=== PATIENT | female | born 2005 | race Two or more races ===

== ENCOUNTER 2024-08-22 23:56 | Emergency (ER) | payer MEDICAID, SELFPAY ==
[2024-08-23 00:22] VITALS: BP 125/75; PULSE 87; RESP 20; TEMP 36.9; O2SAT 98
--- NOTE | 2024-08-23 00:46 | XR_ITS ---
EXAMINATION: Ankle, left 2 views Technique: Ankle AP, lateral 2 views Date and time of exam: August 2024 0036 hrs. Indications: Patient fell today with injury to the ankle, ankle pain. Findings: Acute fracture distal fibular tip, 3.5 mm separation at the fracture site No ankle dislocation Impression: Acute fracture fibular near the fibular tip
[2024-08-23] MEDS: IBUPROFEN TAB 600 MG TABLET PO (00:47)
--- NOTE | 2024-08-23 01:23 | PD.EDANKLE ---
Lower Extremity Injury RME/HPI General Chief Complaint: Ankle/Foot Injury Stated Complaint: LEFT ANKLE PAIN Time Seen by Provider: 08/23/24 00:36 Arrival date/time: 08/22/24 23:56 18F with no significant PMH presents to ED with L ankle pain after trip and fall. Limitations: no limitations Related Data Previous Rx's ?Medication ?Instructions ?Recorded hydrocodone 5 mg-acetaminophen 300 1 tab PO QID PRN pain #14 tabs 07/14/18 mg tablet ibuprofen 600 mg tablet 600 mg PO QID PRN pain #30 tabs 07/14/18 psyllium husk 3.4 gram/5.4 gram 1 tbsp PO QDAY #283 grams 03/24/22 oral powder acetaminophen 300 mg-codeine 15 mg 1 tab PO Q6H PRN pain #10 tabs 04/17/23 tablet hydrocodone 5 mg-acetaminophen 325 1 tab PO BID PRN pain #7 tabs 08/23/24 mg tablet Allergies Allergy/AdvReac Type Severity Reaction Status Date / Time No Known Allergies Allergy Verified 07/14/18 13:09 Review of Systems Review of Systems Systems Reviewed: All systems reviewed, normal except as documented Constitutional Constitutional: Reports system reviewed and no additional complaints, except as documented, Denies fever(s) and Denies headache(s) ENT Ears, Nose, Mouth, and Throat: Denies disequilibrium and Denies headache(s) Cardiovascular Cardiovascular: Reports system reviewed and no additional complaints, except as documented, Denies chest pain and Denies dyspnea Respiratory Respiratory: Reports system reviewed and no additional complaints, except as documented, Denies cough and Denies dyspnea Gastrointestinal Gastrointestinal: Reports system reviewed and no additional complaints, except as documented, Denies abdominal pain, Denies nausea and Denies vomiting Musculoskeletal Musculoskeletal: Reports as per HPI and Reports arthralgias Neurologic Neurologic: Reports system reviewed and no additional complaints, except as documented, Denies confusion, Denies disequilibrium and Denies headache(s) Psychiatric Psychiatric: Denies confusion Past Medical History Past Medical History CARDIAC: Negative Cardiac Disorders or Congestive Heart Failure RESPIRATORY: Negative Chronic Obstructive Pulmonary Disease (COPD) or Asthma GENITOURINARY: Negative Renal Disease ENDOCRINE: Negative Diabetes Mellitus Type 1 or Diabetes Mellitus Type 2 HEMATOLOGIC: Negative Sickle Cell Disease Social History SMOKING STATUS: Never smoker ED Exam General Limitations: Present no limitations General appearance: Present alert and in no apparent distress Head Head exam: Present atraumatic Eye Eye exam: Present normal appearance, PERRL and EOMI ENT ENT exam: Present normal exam, normal oropharynx and mucous membranes moist Neck Neck exam: Present normal inspection, full ROM and trachea midline Chest Chest inspection: Present normal inspection and symmetric chest wall rise Respiratory Respiratory exam: Present normal lung sounds bilaterally Cardiovascular Cardiovascular exam: Present regular rate, normal rhythm and normal heart sounds Abdominal Exam Abdominal exam: Present soft and normal bowel sounds Expanded Lower Extremity Exam Ankle exam: Present tenderness (L) and swelling Back Exam Back exam: Present normal inspection and full ROM Neurological Exam Neurological exam: Present alert, oriented X3 and CN II-XII intact Psychiatric Psychiatric exam: Present normal affect and normal mood Skin Skin exam: Present warm, dry, intact and normal color Course Quality Measures none Orders Category Date Time Status Crutches .NOW Care 08/23/24 00:44 Active Splint / Immobilizer STAT Care 08/23/24 00:44 Active XR ankle comp LT min 3V Stat Exams 08/23/24 00:46 Taken Ibuprofen Tab [Motrin Tab] Med 08/23/24 00:36 Discontinued 600 mg PO X1 ONE Ondansetron Odt [Zofran Odt] Med 08/23/24 00:36 Discontinued 4 mg PO X1 ONE Vital Signs Vital signs: Vital Signs Temperature 98.5 F 08/23/24 00:22 Pulse Rate 87 08/23/24 00:22 Respiratory Rate 20 08/23/24 00:22 Blood Pressure 125/75 08/23/24 00:22 Pulse Oximetry (%) 98 08/23/24 00:22 Oxygen Delivery Method Room Air 08/23/24 00:22 O2 at 98% on RA and WNLs Extremity Injury, Lower MDM Narrative MDM Narrative:: 18F with no significant PMH presents to ED with L ankle pain after trip and fall. Physical exam reveals L ankle tenderness and swelling. ROM limited, likely due to pain. Toe ROM normal. Distal pulses present. Patient is afebrile, alert, but crying XR reveals L fibula fx. Given splint, crutches, and ortho referral. Patient data External records reviewed:: [facility] previous records Clinical information provided by:: patient Social determinants that could affect healthcare access:: none Patient has the following chronic illnesses:: none How is presenting disease/condition affected by chronic disease/condition?: no chronic disease Evaluation data The following diagnostics were reviewed and interpreted by me:: radiology exam(s) Lab and/or radiology exams considered but not ordered:: ordered Interpretation Summary: above Medications / Prescriptions Medications or Prescriptions considered but not ordered:: ordered Medication administrations:: Medication Administration History Discontinued Medications Ibuprofen (Ibuprofen Tab 600 Mg Tablet) 600 mg PO X1 ONE Stop: 08/23/24 00:37 Last Admin: 08/23/24 00:47 Dose: 600 mg Documented By: Ondansetron HCl (Ondansetron Odt 4 Mg Tabrap) 4 mg PO X1 ONE; Protocol Stop: 08/23/24 00:37 Last Admin: 08/23/24 00:48 Dose: Not Given Documented By: Non-Admin Reason: Cancelled by Provider above Consultations Consultation(s) initiated? (list below): No Diagnosis Extremity Injury, Lower Differential Diagnosis: ankle sprain and strain, acute internal derangement of knee, puncture wound of foot, fracture of toe and ankle fracture Most likely diagnosis given after review of the tests above:: ankle fx Admission Indicated Admission indicated?: not indicated Admission Request Was there a request for admission?: No Disposition Plan Disposition Plan: Discharge Discharge Attestation Discharge Attestation: The patient and all family members were given an opportunity to ask questions and understood the discharge instructions. Discharge instructions specifically effects, indications for sooner follow up or return to the emergency department, and the expected course of current diagnosis. Patient condition: Stable Discharge Plan Plan Patient Disposition: HOME (Self Care) Disposition Comment: Stable Prescriptions/Referrals Prescriptions/Med Rec: New hydrocodone-acetaminophen 5-325 mg tablet 1 tab PO BID MDD 2 PRN (Reason: pain) Qty: 7 0RF No Action hydrocodone-acetaminophen 5-300 mg tablet 1 tab PO QID MDD 15 mg PRN (Reason: pain) Qty: 14 0RF ibuprofen 600 mg tablet 600 mg PO QID PRN (Reason: pain) Qty: 30 0RF psyllium husk 3.4 gram/5.4 gram powder 1 tbsp PO QDAY Qty: 283 0RF Rx Instructions: mix into at least 8 oz of water or juice before administering acetaminophen-codeine 300-15 mg tablet 1 tab PO Q6H MDD 4 PRN (Reason: pain) Qty: 10 0RF Referrals: Pete Rivera MD [Physician] - 08/25/24 3:00 pm Problem List Clinical Impression: Ankle fracture Patient/Caregiver Discharge Instructions Education Materials: ED Fracture, Lower Extremity Additional Instructions: Please follow-up with PCP within 24-48 hours and return immediately if symptoms worsen. Please go to scheduled ortho appointment with Dr. Rivera on Sunday at 3 PM. Print Language: Arabic Stand Alone Forms: Patient Portal Info Letter PA/COMPUTER SCIENCE PROFESSOR Supervising Physician PA/COMPUTER SCIENCE PROFESSOR Supervising Physician: Dr. Brock
[2024-08-23 01:35] VITALS: RESP 18
== END 2024-08-23 01:35 | disposition home or self-care (01) ==
LOC: SERX 08-23 06:56
PROVIDERS: Emergency Provider Emergency Medicine; PCP Family Medicine
DX: S82.832A Other fracture of upper and lower end of left fibula, initial encounter for closed fracture (principal); W01.0XXA Fall on same level from slipping, tripping and stumbling without subsequent striking against object, initial encounter
CPT/HCPCS: 29515; 73610; 99283; A9270

== ENCOUNTER 2024-09-18 11:13 | Emergency (ER) | payer MEDICAID, SELFPAY ==
[2024-09-18 11:14] VITALS: BMI 26.4
[2024-09-18 11:23] VITALS: BP 121/79; PULSE 92; RESP 16; TEMP 37.2; O2SAT 99
--- NOTE | 2024-09-18 11:30 | XR_ITS ---
Examination: Pelvic ultrasound, transabdominal, complete Technique: Transabdominal ultrasound of the pelvis performed using grayscale imaging Date and time of exam: September 18, 2024 1221 hours INDICATIONS: Onset pelvic pain today uterus 7.5 cm endometrial stripe 1.0 cm No uterine mass or intrauterine gestation Ovaries obscured by bowel gas IMPRESSION: Limited study No uterine mass or intrauterine gestation
--- NOTE | 2024-09-18 11:30 | PD.EDABDPN ---
ED Abdominal Pain RME/HPI General Chief Complaint: Abdominal Pain Stated complaint: abdominal pain suprpubic since this morning no NV Time seen by provider: 09/18/24 11:17 Arrival date/time: 09/18/24 11:13 RME / HPI RME / HPI narrative: 18-year-old female patient with no significant past medical history, came in for evaluation regarding pelvic pain. Onset of symptoms since early this morning as sudden onset of pelvic pain, described as crampy, associated with tenderness possible patient symptom severity is moderate. Patient denies any dysuria but complain of constipation also. Denies any fever denies any vomiting denies any other complaints no medications taken prior to ER visit. Related Data Previous Rx's ?Medication ?Instructions ?Recorded hydrocodone 5 mg-acetaminophen 300 1 tab PO QID PRN pain #14 tabs 07/14/18 mg tablet ibuprofen 600 mg tablet 600 mg PO QID PRN pain #30 tabs 07/14/18 psyllium husk 3.4 gram/5.4 gram 1 tbsp PO QDAY #283 grams 03/24/22 oral powder acetaminophen 300 mg-codeine 15 mg 1 tab PO Q6H PRN pain #10 tabs 04/17/23 tablet hydrocodone 5 mg-acetaminophen 325 1 tab PO BID PRN pain #7 tabs 08/23/24 mg tablet cefuroxime axetil 500 mg tablet 500 mg PO BID #14 tabs 09/18/24 Allergies Allergy/AdvReac Type Severity Reaction Status Date / Time No Known Allergies Allergy Verified 07/14/18 13:09 Review of Systems Review of Systems Narrative Review of Systems: Review of system reviewed and within normal limits except mentioned in HPI ED Exam Narrative Physical exam: VITAL SIGNS: Reviewed. GENERAL APPEARANCE: Alert and interactive, follows commands, no acute distress, HEAD AND FACE: Non-traumatic. ENT: PERRL, pink conjunctivitis, eyelid no trauma, Mucous membrane moist. NECK: Supple, nontender, no nuchal rigidity. CHEST: No tenderness, no crepitus, no paradoxical movement, no retractions. LUNGS: Clear, well ventilated, symmetric, no rales, no wheezing, no ronchi, no stridor, good breath sounds bilaterally. HEART: Regular rate, regular rhythm, no murmur, no gallops. ABDOMEN: Soft, positive bowel sounds, nondistended, no guarding, nontender, no rebound, no masses, RECTAL: Deferred. GENITAL: Pelvic tenderness on palpation NEUROLOGICAL: Gross motor function intact sensory function intact, Appropriate for age. MUSCULOSKELETAL: low back nontender, full range of motion. EXTREMITIES: Nontender, full range of motion. SKIN: Color pink, dry, no rash, no lacerations, no abrasions, no contusions. LYMPHATICS: Deferred. Course Quality Measures none Orders Category Date Time Status US pelvic complete Stat Exams 09/18/24 11:30 Completed CBC Stat Lab 09/18/24 11:48 Completed Comprehensive Metabolic Panel Stat Lab 09/18/24 11:48 Completed HCG Qualitative,Urine Stat Lab 09/18/24 15:00 Completed Lipase Stat Lab 09/18/24 11:48 Completed Prothrombin Time with INR Stat Lab 09/18/24 11:48 Completed UA, C/S IF [Urinalysis, C/S if Indicated] Stat Lab 09/18/24 15:00 Completed Urine Culture Stat Lab 09/18/24 15:00 Received Acetaminophen Tab [Tylenol ES Tab] Med 09/18/24 11:29 Discontinued 1,000 mg PO X1 ONE Magnesium Citrate Liqd [Citrate of Magnesia Liqd] Med 09/18/24 11:29 Discontinued 300 ml PO X1 ONE Vital Signs Vital signs: Vital Signs Temperature 99.0 F 09/18/24 11:23 Pulse Rate 92 09/18/24 11:23 Respiratory Rate 16 09/18/24 11:23 Blood Pressure 121/79 09/18/24 11:23 Pulse Oximetry (%) 99 09/18/24 11:23 Oxygen Delivery Method Room Air 09/18/24 11:23 Abdominal Pain MDM MDM Narrative MDM Narrative:: 18-year-old female patient with no significant past medical history, came in for evaluation regarding pelvic pain. Onset of symptoms since early this morning as sudden onset of pelvic pain, described as crampy, associated with tenderness possible patient symptom severity is moderate. Patient denies any dysuria but complain of constipation also. Denies any fever denies any vomiting denies any other complaints no medications taken prior to ER visit. Laboratory workup significant for UTI. Rest of the labs unremarkable. Ultrasound of the pelvis came back unremarkable. Patient data External records reviewed:: None Clinical information provided by:: none Social determinants that could affect healthcare access:: none Patient has the following chronic illnesses:: None How is presenting disease/condition affected by chronic disease/condition?: no chronic disease Evaluation data The following diagnostics were reviewed and interpreted by me:: lab results and radiology exam(s) Lab and/or radiology exams considered but not ordered:: None Interpretation Summary: See results in [facility] Medications / Prescriptions Medications or Prescriptions considered but not ordered:: None Medication administrations:: Medication Administration History Discontinued Medications Acetaminophen (Acetaminophen 500 Mg Tablet) 1,000 mg PO X1 ONE Stop: 09/18/24 11:30 Last Admin: 09/18/24 11:50 Dose: 1,000 mg Documented By: DO Magnesium Citrate (Magnesium Citrate 300 Ml Btl) 300 ml PO X1 ONE Stop: 09/18/24 11:30 Last Admin: 09/18/24 11:51 Dose: 300 ml Documented By: DO Mag citrate, Tylenol Consultations Consultation(s) initiated? (list below): No Diagnosis Differential diagnosis abdominal pain: abdominal pain and pancreatitis (Constipation, UTI, pelvic pain) Most likely diagnosis given after review of the tests above:: Pelvic pain, UTI Admission Indicated Admission indicated?: not indicated Explain why admission is indicated or not indicated:: Stable Admission Request Was there a request for admission?: No Disposition Plan Disposition Plan: Discharge Discharge Attestation Discharge Attestation: The patient and all family members were given an opportunity to ask questions and understood the discharge instructions. Discharge instructions specifically effects, indications for sooner follow up or return to the emergency department, and the expected course of current diagnosis. Patient condition: Stable Discharge Plan Plan Patient Disposition: HOME (Self Care) Disposition Comment: stable Prescriptions/Referrals Prescriptions/Med Rec: New cefuroxime axetil 500 mg tablet 500 mg PO BID Qty: 14 0RF No Action hydrocodone-acetaminophen 5-300 mg tablet 1 tab PO QID MDD 15 mg PRN (Reason: pain) Qty: 14 0RF ibuprofen 600 mg tablet 600 mg PO QID PRN (Reason: pain) Qty: 30 0RF hydrocodone-acetaminophen 5-325 mg tablet 1 tab PO BID MDD 2 PRN (Reason: pain) Qty: 7 0RF psyllium husk 3.4 gram/5.4 gram powder 1 tbsp PO QDAY Qty: 283 0RF Rx Instructions: mix into at least 8 oz of water or juice before administering acetaminophen-codeine 300-15 mg tablet 1 tab PO Q6H MDD 4 PRN (Reason: pain) Qty: 10 0RF Referrals: Stevie Ware MD [Primary Care Provider] - In 1 week Problem List Clinical Impression: UTI (urinary tract infection), Pelvic pain Patient/Caregiver Discharge Instructions Discharge Activity: activity as tolerated Education Materials: Understanding Urinary Tract ... Additional Instructions: Thank you for the opportunity for serving you today. You are stable for discharged . You are advised to: Follow-up with your PCP in 1 to 2 days Return to ED for worsening of symptoms Increase oral fluids Take medication as prescribed Print Language: Macedonian Stand Alone Forms: Estella Award Info., Patient Portal Info Letter PA/SERVER CASHIER Supervising Physician PA/FRIEDA Supervising Physician: MD Maikel
[2024-09-18] MEDS: ACETAMINOPHEN 500 MG TABLET 1000 MG PO (11:50)
[2024-09-18] MEDS: MAGNESIUM CITRATE 300 ML BTL PO (11:51)
[2024-09-18 12:05] LABS: Basophils # (Auto) 0.1 Thou/mm3 (0.0-0.2); Basophils % (Auto) 1 % (0-2.5); Eosinophils # (Auto) 0.1 Thou/mm3 (0.0-0.5); Eosinophils % (Auto) 1 % (0-10); Hematocrit 41.3 % (36.0-46.0); Hemoglobin 13.8 g/dL (12.0-16.0); Immature Granulocytes % (Auto) 0 % (0-0); Immature Granulocytes Auto 0.02 Thou/mm3 (0.00-0.00); Lymphocytes # (Auto) 2.7 Thou/mm3 (1.0-4.8); Lymphocytes % (Auto) 29 % (10-50); Mean Corpuscular HGB Conc 33.4 g/dl (31.0-37.0); Mean Corpuscular Hemoglobin 27.4 pg (25.0-35.0); Mean Corpuscular Volume 82 fL (80-100); Monocytes # (Auto) 0.6 Thou/mm3 (0.0-0.8); Monocytes % (Auto) 6 % (0-12); Neutrophils # (Auto) 5.9 Thou/mm3 (1.8-7.7); Neutrophils % (Auto) 64 % (37-80); Nucleated Red Blood Cell % 0 /100 WBC (0); Platelet Count 311 Thou/mm3 (140-440); RDW Standard Deviation 35.9 fL (36.4-46.3); Red Blood Count 5.04 Miln/mm3 (4.00-5.20); White Blood Count 9.3 Thou/mm3 (4.5-11.0)
[2024-09-18 12:24] LABS: Alanine Aminotransferase 24 U/L (10-49); Albumin, Serum 4.6 gm/dL (3.5-5.0); Albumin/Globulin Ratio 1.6 (1.2-2.2); Alkaline Phosphatase 124 U/L (46-116); Anion Gap 9 (7-16); Aspartate Amino Transferase 16 U/L (0-34); BUN/Creatinine Ratio 13 Ratio (12-20); Bilirubin,Total 0.5 mg/dL (0.3-1.2); Blood Urea Nitrogen 10 mg/dL (9-23); Calcium 9.5 mg/dL (8.3-10.6); Calcium (Corrected) 9.5 mg/dL (8.5-10.1); Carbon Dioxide 26.5 mMol/L (20.0-31.0); Chloride 108 mMol/L (98-107); Creatinine (Component) 0.8 mg/dL (0.6-1.3); Estimated Creatinine Clearance 91.7 mL/min (>60); Globulin 2.8 gm/dL (2.3-3.5); Glucose 96 mg/dL (74-106); Lipase 46 U/L (12-53); Osmolality,Calculated 283 (275-295); Potassium 4.1 mMol/L (3.4-5.1); Sodium 143 mMol/L (136-145); Total Protein 7.4 gm/dL (5.7-8.2); eGFR > 60 See Note
[2024-09-18 12:26] LABS: Prothrombin Time 10.5 Seconds (9.0-12.2)
[2024-09-18 14:13] VITALS: TEMP 36.6
[2024-09-18 15:13] LABS: Collection Type, Urine Clean Catch
[2024-09-18 15:27] LABS: HCG Qualitative,Urine Negative
[2024-09-18 15:28] LABS: Bilirubin,Urine Negative (Negative); Blood,Urine 2+ (Negative); Clarity,Urine Clear (Clear/Hazy); Color,Urine Lt-Yellow (Lt Yel-Yel); Glucose, Urine Negative (Negative); Ketones,Urine Trace (Negative); Leukocyte Esterase,Urine Positive (Negative); Nitrite,Urine Negative (Negative); PH,Urine 6.5 (5.0-7.0); Protein,Urine Negative (Neg - Trace); RBC,Urine 5 /hpf (0-3); Specific Gravity,Urine 1.025 (1.001-1.035); Squamous Epithelial Cell,Urine 10 /hpf (0-5); Urobilinogen,Urine Negative mg/dL (0.0-1.0); WBC,Urine 17 /hpf (0-5)
[2024-09-18 15:52] LABS: Culture Indicated,Urine Yes
[2024-09-18 16:38] VITALS: BP 126/60; PULSE 88; RESP 18; TEMP 36.6; O2SAT 100
== END 2024-09-18 17:00 | disposition home or self-care (01) ==
PROVIDERS: Nurse Practitioner Family; Emergency Provider Emergency Medicine; PCP Family Medicine
DX: N39.0 Urinary tract infection, site not specified (principal)
CPT/HCPCS: 36415; 76856; 80053; 81001; 81025; 83690; 85025; 85610; 87086; 99284; A9270

== ENCOUNTER → 2024-09-24 | Outpatient (CLI) | payer MEDICAID, SELFPAY ==
--- NOTE | 2024-09-24 14:48 | XR_ITS ---
EXAMINATION: Ankle, left 3 views . Technique: Ankle AP, oblique, lateral 3 views Date and time of exam: September 24, 2024 1555 hrs. Indications: Ankle fracture 5 weeks ago Findings: Healing fracture distal fibular tip with stable and satisfactory alignment Impression: Healing fracture distal fibular tip, stable and satisfactory alignment
== END | disposition home or self-care (01) ==
LOC: SDIM 14:40
PROVIDERS: PCP Physician Assistant; Referring Provider Orthopaedic Surgery; Visit Provider Orthopaedic Surgery
DX: S82.832A Other fracture of upper and lower end of left fibula, initial encounter for closed fracture (principal); X58.XXXA Exposure to other specified factors, initial encounter
CPT/HCPCS: 73610

== ENCOUNTER 2024-12-11 14:03 | Emergency (ER) | payer MEDICAID, SELFPAY ==
[2024-12-11 14:03] VITALS: BMI 26.7
[2024-12-11 14:13] VITALS: BP 124/84; PULSE 98; RESP 18; TEMP 36.9; O2SAT 98
--- NOTE | 2024-12-11 14:14 | EDNOTE_ITS ---
<Statement entered by Katerin Guillaume MD - 12/12/24 06:23> As co-signing physician, I was present and available for consult prn. I concur with the plan and care as documented by the midlevel provider. ED Female Urogenital RME/HPI General Chief complaint: Urogenital-Female Stated complaint: SPOTTING AND + PREG Time Seen by Provider: 12/11/24 14:15 Source: patient Arrival date/time: 12/11/24 14:03 18-year-old female with no known medical history presents to the emergency room with a chief complaint of vaginal spotting. Patient states she is currently 3 weeks and began having spotting when she wipes. Patient is a G1, P0 Mode of arrival: ambulatory Limitations: no limitations Related Data Previous Rx's ?Medication ?Instructions ?Recorded hydrocodone 5 mg-acetaminophen 300 1 tab PO QID PRN pa in #14 tabs 07/14/18 mg tablet ibuprofen 600 mg tablet 600 mg PO QID PRN pain #30 t abs 07/14/18 psyllium husk 3.4 gram/5.4 gram 1 tbsp PO QDAY #283 gr ams 03/24/22 oral powder acetaminophen 300 mg-codeine 15 mg 1 tab PO Q6H PRN pa in #10 tabs 04/17/23 tablet hydrocodone 5 mg-acetaminophen 325 1 tab PO BID PRN pa in #7 tabs 08/23/24 mg tablet cefuroxime axetil 500 mg tablet 500 mg PO BID #14 tabs 09/18/24 Allergies Allergy/AdvReac Type Severity Reaction Status Date / Time No Known Allergies Allergy Verified 12/11/24 14:06 ED Exam General Limitations: Present no limitations Course Quality Measures none Orders Category Date Time Status US OB <= 14 weeks fetus Stat Exams 12/11/24 14:14 Completed ABO/RH Type Stat Lab 12/11/24 14:46 Completed Beta HCG,Quantitative Stat Lab 12/11/24 14:46 Completed CBC Stat Lab 12/11/24 14:46 Completed CMP [Comprehensive Metabolic Panel] Stat Lab 12/11/24 14:46 Completed UA [Urinalysis] Stat Lab 12/11/24 14:20 Completed Vital Signs Vital signs: Vital Signs Temperature 98.4 F 12/11/24 14:13 Pulse Rate 98 12/11/24 14:13 Respiratory Rate 18 12/11/24 14:13 Blood Pressure 124/84 12/11/24 14:13 Pulse Oximetry (%) 98 12/11/24 14:13 Oxygen Delivery Method Room Air 12/11/24 14:13 Urogenital - Female MDM Narrative MDM Narrative:: 18-year-old female with no known medical history presents to the emergency room with a chief complaint of vaginal spotting. Patient states she is currently 3 weeks and began having spotting when she wipes. Patient is a G1, P0 Patient is hemodynamically stable and in no apparent distress. There is no tachycardia or tachypnea fevers Physical examination shows no tenderness to the abdomen. Patient states her only complaint is vaginal spotting when she wipes. Patient states she is currently 3 weeks . An ultrasound OB was completed and was negative for any intrauterine gestation. Her hCG levels are at 2797. Patient was educated to return in 3 days for repeat ultrasound and blood work. Patient was educated to follow-up with her MAGNETIC RESONANCE IMAGING DIRECTOR and return to the emergency room for any evidence of worsening signs or symptoms. Hemoglobin and hematocrit are within normal limits Patient was discharged and educated to follow-up with primary care provider in the next 24 to 48 hours and return to the emergency room for any evidence of worsening signs or symptoms Patient data External records reviewed:: [facility] previous records Clinical information provided by:: patient Social determinants that could affect healthcare access:: none Patient has the following chronic illnesses:: No chronic illness How is presenting disease/condition affected by chronic disease/condition?: no chronic disease Evaluation data The following diagnostics were reviewed and interpreted by me:: lab results and radiology exam(s) Lab and/or radiology exams considered but not ordered:: Labs and radiology exams considered and ordered Interpretation Summary: Ultrasound OB-Findings: Uterus 8.2 cm endometrial stripe 1.0 cm No uterine mass or intrauterine gestation Right ovary 3.0 cm arterial flow Left ovary 2.9 cm arterial flow IMPRESSION: No uterine mass or intrauterine gestation Medications / Prescriptions Medications or Prescriptions considered but not ordered:: Medication not given Medication administrations:: Medication not given Consultations Consultation(s) initiated? (list below): No Diagnosis Urogenital Female Differential Diagnosis: urinary tract infection and other Most likely diagnosis given after review of the tests above:: Vaginal bleeding Admission Indicated Admission indicated?: not indicated Admission Request Was there a request for admission?: No Disposition Plan Disposition Plan: Discharge Discharge Attestation Discharge Attestation: The patient and all family members were given an opportunity to ask questions and understood the discharge instructions. Discharge instructions specifically effects, indications for sooner follow up or return to the emergency department, and the expected course of current diagnosis. Patient condition: Stable Discharge Plan Plan Patient Disposition: HOME (Self Care) Discharge Disposition comment: Stable Prescriptions/Referrals Prescriptions/Med Rec: No Action hydrocodone-acetaminophen 5-300 mg tablet 1 tab PO QID MDD 15 mg PRN (Reason: pain) Qty: 14 0RF ibuprofen 600 mg tablet 600 mg PO QID PRN (Reason: pain) Qty: 30 0RF hydrocodone-acetaminophen 5-325 mg tablet 1 tab PO BID MDD 2 PRN (Reason: pain) Qty: 7 0RF psyllium husk 3.4 gram/5.4 gram powder 1 tbsp PO QDAY Qty: 283 0RF Rx Instructions: mix into at least 8 oz of water or juice before administering acetaminophen-codeine 300-15 mg tablet 1 tab PO Q6H MDD 4 PRN (Reason: pain) Qty: 10 0RF cefuroxime axetil 500 mg tablet 500 mg PO BID Qty: 14 0RF Referrals: No Primary/Family,Physician [Primary Care Provider] - In 1 week Problem List Clinical Impression: Vaginal bleeding affecting early Patient/Caregiver Discharge Instructions Education Materials: Bleeding During Early Additional Instructions: Please follow-up with your MAGNETIC RESONANCE IMAGING DIRECTOR in the next 24 to 48 hours Your ultrasound was completed and at this time there is no visualization of an intrauterine . This can be because you are very early on in your . Your hCG levels are 2767 which indicate you are . Please follow-up with your MAGNETIC RESONANCE IMAGING DIRECTOR For any evidence of worsening signs or symptoms return to the emergency room immediately Print Language: Georgian Stand Alone Forms: Estella Award Info., Patient Portal Info Letter PA/JEWEL BEARING MAKER Supervising Physician PA/JEWEL BEARING MAKER Supervising Physician: Dr. GUILLAUME
--- NOTE | 2024-12-11 14:14 | XR_ITS ---
Examination: Complete OB ultrasound, less than 14 weeks, transabdominal Date and time of exam: December 11, 2024 1426 hours INDICATIONS: Vaginal bleeding onset today Technique: Obstetrical ultrasound images less than 14 weeks performed via transabdominal imaging Findings: Uterus 8.2 cm endometrial stripe 1.0 cm No uterine mass or intrauterine gestation Right ovary 3.0 cm arterial flow Left ovary 2.9 cm arterial flow IMPRESSION: No uterine mass or intrauterine gestation
[2024-12-11 14:49] LABS: Collection Type, Urine Clean Catch
[2024-12-11 15:13] LABS: Basophils % (Auto) 0 % (0-2.5); Eosinophils # (Auto) 0.1 Thou/mm3 (0.0-0.5); Eosinophils % (Auto) 1 % (0-10); Hematocrit 39.3 % (36.0-46.0); Hemoglobin 13.6 g/dL (12.0-16.0); Immature Granulocytes % (Auto) 0 % (0-0); Immature Granulocytes Auto 0.03 Thou/mm3 (0.00-0.00); Lymphocytes # (Auto) 3.8 Thou/mm3 (1.0-4.8); Lymphocytes % (Auto) 37 % (10-50); Mean Corpuscular HGB Conc 34.6 g/dl (31.0-37.0); Mean Corpuscular Hemoglobin 27.6 pg (25.0-35.0); Mean Corpuscular Volume 80 fL (80-100); Monocytes # (Auto) 0.8 Thou/mm3 (0.0-0.8); Monocytes % (Auto) 8 % (0-12); Neutrophils # (Auto) 5.5 Thou/mm3 (1.8-7.7); Neutrophils % (Auto) 54 % (37-80); Nucleated Red Blood Cell % 0 /100 WBC (0); Platelet Count 314 Thou/mm3 (140-440); RDW Standard Deviation 36.5 fL (36.4-46.3); Red Blood Count 4.92 Miln/mm3 (4.00-5.20); White Blood Count 10.3 Thou/mm3 (4.5-11.0)
[2024-12-11 15:19] LABS: Bilirubin,Urine Negative (Negative); Blood,Urine 1+ (Negative); Clarity,Urine Clear (Clear/Hazy); Color,Urine Lt-Yellow (Lt Yel-Yel); Glucose, Urine Negative (Negative); Ketones,Urine 3+ (Negative); Leukocyte Esterase,Urine Negative (Negative); Nitrite,Urine Negative (Negative); Protein,Urine Negative (Neg - Trace); RBC,Urine 4 /hpf (0-3); Specific Gravity,Urine 1.026 (1.001-1.035); Squamous Epithelial Cell,Urine 3 /hpf (0-5); Urobilinogen,Urine Negative mg/dL (0.0-1.0); WBC,Urine 2 /hpf (0-5)
[2024-12-11 15:32] LABS: Alanine Aminotransferase 13 U/L (10-49); Albumin, Serum 4.5 gm/dL (3.5-5.0); Albumin/Globulin Ratio 1.7 (1.2-2.2); Alkaline Phosphatase 119 U/L (46-116); Anion Gap 11 (7-16); Aspartate Amino Transferase 18 U/L (0-34); BUN/Creatinine Ratio 11 Ratio (12-20); Bilirubin,Total 0.5 mg/dL (0.3-1.2); Blood Urea Nitrogen 8 mg/dL (9-23); Carbon Dioxide 20.9 mMol/L (20.0-31.0); Chloride 108 mMol/L (98-107); Creatinine (Component) 0.7 mg/dL (0.6-1.3); Estimated Creatinine Clearance 105.6 mL/min (>60); Globulin 2.6 gm/dL (2.3-3.5); Glucose 95 mg/dL (74-106); Osmolality,Calculated 277 (275-295); Potassium 3.6 mMol/L (3.4-5.1); Sodium 140 mMol/L (136-145); Total Protein 7.1 gm/dL (5.7-8.2); eGFR > 60 See Note
[2024-12-11 15:43] LABS: Beta HCG,Quantitative 2797 mIU/mL (<5.0)
[2024-12-11 16:03] VITALS: BP 121/72; PULSE 99; RESP 19; TEMP 36.9; O2SAT 99
== END 2024-12-11 16:08 | disposition home or self-care (01) ==
PROVIDERS: Nurse Practitioner Family; Emergency Provider Emergency Medicine
DX: O20.9 Hemorrhage in early pregnancy, unspecified (principal); Z3A.01 Less than 8 weeks gestation of pregnancy
CPT/HCPCS: 36415; 76801; 80053; 81001; 84702; 85025; 86900; 86901; 99284

== ENCOUNTER 2024-12-14 14:21 | Emergency (ER) | payer MEDICAID, SELFPAY ==
[2024-12-14 14:22] VITALS: BMI 26.7
[2024-12-14 14:36] VITALS: BP 124/86; PULSE 82; RESP 16; TEMP 37.2; O2SAT 100; BMI 26.6
--- NOTE | 2024-12-14 15:28 | PD.EDRECHK ---
ED Recheck Abnl Lab Rx-RME/HPI General Chief Complaint: Recheck/Abnormal Lab/Rx Stated Complaint: HERE FOR REDRAW FOR HCG Time Seen by Provider: 12/14/24 15:03 Arrival date/time: 12/14/24 14:21 This is a 18-year-old female who was seen in the emergency room approximately 3 days ago for complaints of vaginal bleeding. Patient has a very early and it was not seen on ultrasound. Patient thinks she is approximately 3 weeks .2797 was last hcg. No more bleeding at this time. Patient was instructed to come back to ed for a recheck blood draw. Related Data Previous Rx's ?Medication ?Instructions ?Recorded hydrocodone 5 mg-acetaminophen 300 1 tab PO QID PRN pain #14 tabs 07/14/18 mg tablet ibuprofen 600 mg tablet 600 mg PO QID PRN pain #30 tabs 07/14/18 psyllium husk 3.4 gram/5.4 gram 1 tbsp PO QDAY #283 grams 03/24/22 oral powder acetaminophen 300 mg-codeine 15 mg 1 tab PO Q6H PRN pain #10 tabs 04/17/23 tablet hydrocodone 5 mg-acetaminophen 325 1 tab PO BID PRN pain #7 tabs 08/23/24 mg tablet cefuroxime axetil 500 mg tablet 500 mg PO BID #14 tabs 09/18/24 Allergies Allergy/AdvReac Type Severity Reaction Status Date / Time No Known Allergies Allergy Verified 12/14/24 14:23 Course Orders Category Date Time Status Beta HCG,Quantitative Stat Lab 12/14/24 15:27 Completed Vital Signs Vital signs: Vital Signs Temperature 99.0 F 12/14/24 14:36 Pulse Rate 82 12/14/24 14:36 Respiratory Rate 16 12/14/24 14:36 Blood Pressure 124/86 H 12/14/24 14:36 Pulse Oximetry (%) 100 12/14/24 14:36 Oxygen Delivery Method Room Air 12/14/24 14:36 Discharge Plan Plan Patient Disposition: HOME (Self Care) Patient condition on transfer: Stable Prescriptions/Referrals Prescriptions/Med Rec: No Action hydrocodone-acetaminophen 5-300 mg tablet 1 tab PO QID MDD 15 mg PRN (Reason: pain) Qty: 14 0RF ibuprofen 600 mg tablet 600 mg PO QID PRN (Reason: pain) Qty: 30 0RF hydrocodone-acetaminophen 5-325 mg tablet 1 tab PO BID MDD 2 PRN (Reason: pain) Qty: 7 0RF psyllium husk 3.4 gram/5.4 gram powder 1 tbsp PO QDAY Qty: 283 0RF Rx Instructions: mix into at least 8 oz of water or juice before administering acetaminophen-codeine 300-15 mg tablet 1 tab PO Q6H MDD 4 PRN (Reason: pain) Qty: 10 0RF cefuroxime axetil 500 mg tablet 500 mg PO BID Qty: 14 0RF Referrals: Stevie Ware MD [Primary Care Provider] - In 1 week Problem List Clinical Impression: Threatened miscarriage Patient/Caregiver Discharge Instructions Discharge Activity: activity as tolerated Education Materials: ED Possible Miscarriage ... Additional Instructions: Follow up with primary provider in 1-2 days. Come back to ED if symptoms change or worsen. Previous hCG was 2787 today it is 8914. Please make an appointment with [facility]UP[facility] HYGIENIST. Print Language: Setswana Stand Alone Forms: Estella Award Info., Patient Portal Info Letter PA/INSURANCE EXAMINING CLERK Supervising Physician PA/INSURANCE EXAMINING CLERK Supervising Physician: irene
[2024-12-14 16:13] LABS: Beta HCG,Quantitative 8914 mIU/mL (<5.0)
== END 2024-12-14 16:59 | disposition home or self-care (01) ==
PROVIDERS: Nurse Practitioner Family; Emergency Provider Emergency Medicine; PCP Family Medicine
DX: O20.0 Threatened abortion (principal); Z3A.01 Less than 8 weeks gestation of pregnancy
CPT/HCPCS: 36415; 84702; 99283

== ENCOUNTER 2025-01-16 12:48 | Emergency (ER) | payer MEDICAID, SELFPAY ==
[2025-01-16 13:44] VITALS: BP 115/75; PULSE 82; RESP 16; TEMP 36.7; O2SAT 99; BMI 26.4
--- NOTE | 2025-01-16 13:59 | PD.EDRME ---
Rapid Medical Screening Exam RME Arrival date/time: 01/16/25 12:48 This is a 19-year-old female that comes in with complaints of some mild vaginal spotting after having intercourse. Patient states she is about 10 weeks . Patient denies any pain. Patient states she has had this happen in the past. I have greeted and performed a focused initial assessment of this patient. Initial appropriate labs ordered at this time. A comprehensive ED assessment and evaluation of the patient and analysis of all test and completion of medical decision making process will be conducted by additional ED provider. Chief Complaint: Urogenital-Female Time Seen by Provider: 01/16/25 13:22 Vital signs: Vital Signs Temperature 98.0 F 01/16/25 13:44 Pulse Rate 82 01/16/25 13:44 Respiratory Rate 16 01/16/25 13:44 Blood Pressure 115/75 01/16/25 13:44 Pulse Oximetry (%) 99 01/16/25 13:44 Oxygen Delivery Method Room Air 01/16/25 13:44
[2025-01-16 14:27] LABS: Basophils # (Auto) 0.0 Thou/mm3 (0.0-0.2); Basophils % (Auto) 0 % (0-2.5); Eosinophils # (Auto) 0.1 Thou/mm3 (0.0-0.5); Eosinophils % (Auto) 1 % (0-10); Hematocrit 41.9 % (36.0-46.0); Hemoglobin 14.2 g/dL (12.0-16.0); Immature Granulocytes Auto 0.03 Thou/mm3 (0.00-0.00); Lymphocytes # (Auto) 3.3 Thou/mm3 (1.0-4.8); Lymphocytes % (Auto) 29 % (10-50); Mean Corpuscular HGB Conc 33.9 g/dl (31.0-37.0); Mean Corpuscular Hemoglobin 28.5 pg (25.0-35.0); Mean Corpuscular Volume 84 fL (80-100); Monocytes # (Auto) 0.9 Thou/mm3 (0.0-0.8); Monocytes % (Auto) 8 % (0-12); Neutrophils # (Auto) 7.1 Thou/mm3 (1.8-7.7); Neutrophils % (Auto) 62 % (37-80); Nucleated Red Blood Cell # 0.00 Thou/mm3 (0.00-0.00); Nucleated Red Blood Cell % 0 /100 WBC (0); Platelet Count 318 Thou/mm3 (140-440); RDW Standard Deviation 38.8 fL (36.4-46.3); Red Blood Count 4.98 Miln/mm3 (4.00-5.20); White Blood Count 11.3 Thou/mm3 (3.6-11.0)
[2025-01-16 14:31] LABS: Collection Type, Urine Voided; RBC,Urine 0 /hpf (0-3); WBC,Urine 0 /hpf (0-5)
[2025-01-16 14:38] LABS: Bacteria,Urine Rare; Bilirubin,Urine Negative (Negative); Blood,Urine Negative (Negative); Clarity,Urine Turbid (Clear/Hazy); Color,Urine Yellow (Lt Yel-Yel); Culture Indicated,Urine Not Indicated; Glucose, Urine Negative (Negative); Ketones,Urine Negative (Negative); Leukocyte Esterase,Urine Negative (Negative); Nitrite,Urine Negative (Negative); PH,Urine 6.5 (5.0-7.0); Protein,Urine Negative (Neg - Trace); Specific Gravity,Urine 1.017 (1.001-1.035); Squamous Epithelial Cell,Urine < 1 /hpf (0-5); Urobilinogen,Urine Negative mg/dL (0.0-1.0)
[2025-01-16 14:57] LABS: Alanine Aminotransferase 20 U/L (10-49); Albumin, Serum 4.5 gm/dL (3.5-5.0); Albumin/Globulin Ratio 1.6 (1.2-2.2); Alkaline Phosphatase 88 U/L (46-116); Anion Gap 8 (7-16); Aspartate Amino Transferase 18 U/L (0-34); BUN/Creatinine Ratio 9 Ratio (12-20); Bilirubin,Total 0.4 mg/dL (0.3-1.2); Blood Urea Nitrogen 6 mg/dL (9-23); Calcium 9.4 mg/dL (8.3-10.6); Calcium (Corrected) 9.4 mg/dL (8.5-10.1); Carbon Dioxide 24.6 mMol/L (20.0-31.0); Chloride 106 mMol/L (98-107); Creatinine (Component) 0.7 mg/dL (0.6-1.3); Estimated Creatinine Clearance 103.9 mL/min (>60); Globulin 2.9 gm/dL (2.3-3.5); Glucose 87 mg/dL (74-106); Osmolality,Calculated 274 (275-295); Potassium 3.5 mMol/L (3.4-5.1); Sodium 139 mMol/L (136-145); Total Protein 7.4 gm/dL (5.7-8.2); eGFR > 60 See Note
[2025-01-16 15:19] VITALS: BP 115/76; PULSE 78; RESP 16; TEMP 36.8; O2SAT 97
[2025-01-16 15:36] LABS: Beta HCG,Quantitative 111719 mIU/mL (<5.0)
--- NOTE | 2025-01-16 15:57 | EDNOTE_ITS ---
ED Female Urogenital RME/HPI General Chief complaint: Urogenital-Female Stated complaint: Vaginal discharge after intercourse, 10 weeks OB Time Seen by Provider: 01/16/25 13:22 Arrival date/time: 01/16/25 12:48 Limitations: no limitations RME / HPI RME / HPI Narrative: 19-year-old female who states she has small amounts of blood noted when she urinated after she had intercourse over this past day. She denies any abdominal pain or pelvic pain. She has no dysuria. No fevers or chills. No continuous vaginal bleeding. She states she is approximately 10 weeks . This is her first . She has no chronic medical disease. She has no other acute complaints. Related Data Previous Rx's ?Medication ?Instructions ?Recorded hydrocodone 5 mg-acetaminophen 300 1 tab PO QID PRN pa in #14 tabs 07/14/18 mg tablet ibuprofen 600 mg tablet 600 mg PO QID PRN pain #30 t abs 07/14/18 psyllium husk 3.4 gram/5.4 gram 1 tbsp PO QDAY #283 gr ams 03/24/22 oral powder acetaminophen 300 mg-codeine 15 mg 1 tab PO Q6H PRN pa in #10 tabs 04/17/23 tablet hydrocodone 5 mg-acetaminophen 325 1 tab PO BID PRN pa in #7 tabs 08/23/24 mg tablet cefuroxime axetil 500 mg tablet 500 mg PO BID #14 tabs 09/18/24 Allergies Allergy/AdvReac Type Severity Reaction Status Date / Time No Known Allergies Allergy Verified 01/16/25 12:53 Review of Systems Review of Systems Systems Reviewed: All systems reviewed, normal except as documented ED Exam General Limitations: Present no limitations General appearance: Present alert and in no apparent distress Head Head exam: Present atraumatic Eye Eye exam: Present normal appearance, PERRL and EOMI ENT ENT exam: Present normal exam, normal oropharynx and mucous membranes moist Neck Neck exam: Present normal inspection, full ROM and trachea midline Chest Chest inspection: Present normal inspection and symmetric chest wall rise Respiratory Respiratory exam: Present normal lung sounds bilaterally Cardiovascular Cardiovascular exam: Present regular rate, normal rhythm and normal heart sounds Abdominal Exam Abdominal exam: Present soft and normal bowel sounds Extremities Exam Extremities exam: Present normal inspection and full ROM Back Exam Back exam: Present normal inspection and full ROM Neurological Exam Neurological exam: Present alert, oriented X3 and CN II-XII intact Psychiatric Psychiatric exam: Present normal affect and normal mood Skin Skin exam: Present warm, dry, intact and normal color Course Quality Measures none Orders Category Date Time Status heart tone auscultation ONCE Care 01/16/25 15:53 Completed ABO/RH Type - Stat Lab 01/16/25 14:12 Completed Beta HCG,Quantitative Stat Lab 01/16/25 14:12 Completed CBC Stat Lab 01/16/25 14:12 Completed Comprehensive Metabolic Panel Stat Lab 01/16/25 14:12 Completed Urinalysis, C/S if Indicated Stat Lab 01/16/25 14:14 Completed Vital Signs Vital signs: Vital Signs Temperature 98.0 F 01/16/25 13:44 Pulse Rate 82 01/16/25 13:44 Respiratory Rate 16 01/16/25 13:44 Blood Pressure 115/75 01/16/25 13:44 Pulse Oximetry (%) 99 01/16/25 13:44 Oxygen Delivery Method Room Air 01/16/25 13:44 Urogenital - Female MDM Narrative MDM Narrative:: 19-year-old female who states she has small amounts of blood noted when she urinated after she had intercourse over this past day. She denies any abdominal pain or pelvic pain. She has no dysuria. No fevers or chills. No continuous vaginal bleeding. She states she is approximately 10 weeks . This is her first . She has no chronic medical disease. She has no other acute complaints. On exam, patient is nontoxic-appearing in no visible signs stress. Abdomen is soft and supple. Vital signs are stable. Her CBC is within normal limits. Metabolic panel is within normal limits. Urinalysis reveals no evidence of UTI. hCG level as [id number]. Patient data External records reviewed:: None Clinical information provided by:: patient Social determinants that could affect healthcare access:: none Patient has the following chronic illnesses:: n/a How is presenting disease/condition affected by chronic disease/condition?: no chronic disease Evaluation data The following diagnostics were reviewed and interpreted by me:: lab results Lab and/or radiology exams considered but not ordered:: n/a Interpretation Summary: no anemai or metabolic derangment Medications / Prescriptions Medications or Prescriptions considered but not ordered:: n/a Medication administrations:: n/a Consultations Consultation(s) initiated? (list below): No Diagnosis Urogenital Female Differential Diagnosis: urinary tract infection and dysmenorrhea Most likely diagnosis given after review of the tests above:: vaginal bleeding Admission Indicated Admission indicated?: not indicated Admission Request Was there a request for admission?: No Disposition Plan Disposition Plan: Discharge Discharge Attestation Discharge Attestation: The patient and all family members were given an opportunity to ask questions and understood the discharge instructions. Discharge instructions specifically effects, indications for sooner follow up or return to the emergency department, and the expected course of current diagnosis. Patient condition: Stable Discharge Plan Plan Patient Disposition: HOME (Self Care) Patient condition on transfer: Stable Prescriptions/Referrals Prescriptions/Med Rec: No Action hydrocodone-acetaminophen 5-300 mg tablet 1 tab PO QID MDD 15 mg PRN (Reason: pain) Qty: 14 0RF ibuprofen 600 mg tablet 600 mg PO QID PRN (Reason: pain) Qty: 30 0RF hydrocodone-acetaminophen 5-325 mg tablet 1 tab PO BID MDD 2 PRN (Reason: pain) Qty: 7 0RF psyllium husk 3.4 gram/5.4 gram powder 1 tbsp PO QDAY Qty: 283 0RF Rx Instructions: mix into at least 8 oz of water or juice before administering acetaminophen-codeine 300-15 mg tablet 1 tab PO Q6H MDD 4 PRN (Reason: pain) Qty: 10 0RF cefuroxime axetil 500 mg tablet 500 mg PO BID Qty: 14 0RF Referrals: Valdemar Curry MD [Primary Care Provider] - In 1 week Problem List Clinical Impression: Vaginal bleeding Patient/Caregiver Discharge Instructions Education Materials: Bleeding During Early Additional Instructions: -Follow up with your doctor next week for a rechedk. -Return here as needed for any worsening changes. Print Language: Maori Stand Alone Forms: Estella Award Info., Patient Portal Info Letter
--- NOTE | 2025-01-16 16:05 | PC.NURSE ---
attempted to get heart tones but unable to locate heart tones with Doppler. provider informed.
== END 2025-01-16 16:15 | disposition home or self-care (01) ==
PROVIDERS: Nurse Practitioner Family; Emergency Provider Family Medicine; PCP Obstetrics & Gynecology
DX: O20.9 Hemorrhage in early pregnancy, unspecified (principal); Z3A.10 10 weeks gestation of pregnancy
CPT/HCPCS: 36415; 80053; 81001; 84702; 85025; 86850; 86900; 86901; 99283

== ENCOUNTER 2025-01-21 12:23 | Emergency (ER) | payer MEDICAID, SELFPAY ==
[2025-01-21 12:43] VITALS: BP 116/81; PULSE 73; RESP 16; TEMP 36.9; O2SAT 99; BMI 26.4
--- NOTE | 2025-01-21 12:47 | XR_ITS ---
Examination: Complete OB ultrasound, less than 14 weeks, transabdominal Date and time of exam: January 21, 2025 1304 hours INDICATIONS: Onset vaginal bleeding today, early by history Technique: Obstetrical ultrasound images less than 14 weeks performed via transabdominal imaging Findings: A normal shaped single intrauterine gestation is present in the uterus. pole 3.7 cm corresponds to 10 weeks 4 days gestational age Posterior subchorionic hemorrhage 3.8 x 1.2 x 3.9 cm Ultrasonographic survey of visible structures unremarkable. Amniotic fluid volume appears appropriate for this estimated gestational age. Right ovary 2.3 cm arterial flow Left ovary 2.6 cm arterial flow IMPRESSION: Viable intrauterine gestation 10 weeks 4 days Suggest continued short-term follow-up given the subchorionic hemorrhage.
--- NOTE | 2025-01-21 12:49 | EDNOTE_ITS ---
ED OB Contraction Preg RMI/HPI General Chief complaint: Vaginal Bleeding Stated complaint: Vaginal bleeding X 5 days, Time Seen by Provider: 01/21/25 12:25 Arrival date/time: 01/21/25 12:23 This is a case of 19-year-old female who came into the emergency room due to vaginal bleeding and pelvic cramping for 5 days patient is 10 weeks LMP November 11, 2024 seen by the SCREENING NURSE in for check 1 para 0 persistence of the symptoms thus patient decided to sought consult here in the emergency room Limitations: no limitations Related Data Previous Rx's ?Medication ?Instructions ?Recorded hydrocodone 5 mg-acetaminophen 300 1 tab PO QID PRN pa in #14 tabs 07/14/18 mg tablet ibuprofen 600 mg tablet 600 mg PO QID PRN pain #30 t abs 07/14/18 psyllium husk 3.4 gram/5.4 gram 1 tbsp PO QDAY #283 gr ams 03/24/22 oral powder acetaminophen 300 mg-codeine 15 mg 1 tab PO Q6H PRN pa in #10 tabs 04/17/23 tablet hydrocodone 5 mg-acetaminophen 325 1 tab PO BID PRN pa in #7 tabs 08/23/24 mg tablet cefuroxime axetil 500 mg tablet 500 mg PO BID #14 tabs 09/18/24 Allergies Allergy/AdvReac Type Severity Reaction Status Date / Time No Known Allergies Allergy Verified 01/21/25 12:27 Review of Systems Review of Systems Systems Reviewed: All systems reviewed, normal except as documented Constitutional Constitutional: Reports system reviewed and no additional complaints, except as documented, Denies chills and Denies fever(s) Cardiovascular Cardiovascular: Reports system reviewed and no additional complaints, except as documented and Reports as per HPI Respiratory Respiratory: Reports system reviewed and no additional complaints, except as documented and Reports as per HPI Gastrointestinal Gastrointestinal: Reports system reviewed and no additional complaints, except as documented, Reports as per HPI, Denies abdominal pain, Denies diarrhea, Denies hematemesis, Denies hematochezia, Denies loose stools, Denies nausea and Denies vomiting Genitourinary Genitourinary: Reports system reviewed and no additional complaints, except as documented, Reports as per HPI, Reports abnormal vaginal bleeding, Denies dysuria, Reports pelvic pain, Denies urinary incontinence, Denies urinary hesitancy, Denies urinary urgency, Denies vaginal discharge, Denies vaginal dryness, Denies vaginal odor and Denies vaginal pruritus Neurologic Neurologic: Reports system reviewed and no additional complaints, except as documented and Reports as per HPI Past Medical History Past Medical History CARDIAC: Negative Cardiac Disorders or Congestive Heart Failure RESPIRATORY: Negative Chronic Obstructive Pulmonary Disease (COPD) or Asthma GENITOURINARY: Negative Renal Disease ENDOCRINE: Negative Diabetes Mellitus Type 1 or Diabetes Mellitus Type 2 HEMATOLOGIC: Negative Sickle Cell Disease Social History SMOKING STATUS: Never smoker ED Exam General Limitations: Present no limitations General appearance: Present alert, in no apparent distress and other (Awake alert oriented x 4 no focal deficit GCS 15/15 steady gait) Head Head exam: Present atraumatic, normocephalic and normal inspection Eye Eye exam: Present normal appearance, PERRL and EOMI ENT ENT exam: Present normal exam, normal oropharynx and mucous membranes moist Neck Neck exam: Present normal inspection, full ROM and trachea midline; Absent tenderness, meningismus or lymphadenopathy Chest Chest inspection: Present normal inspection and symmetric chest wall rise; Absent tenderness, rash or abscess Respiratory Respiratory exam: Present normal lung sounds bilaterally; Absent respiratory distress, wheezes, stridor, accessory muscle use or prolonged expiratory phase Cardiovascular Cardiovascular exam: Present regular rate, normal rhythm and normal heart sounds Abdominal Exam Abdominal exam: Present soft, normal bowel sounds and other (Gravid uterus no CVA tenderness); Absent distention, tenderness, guarding, rebound, rigidity, diminished bowel sounds, hyperactive bowel sounds, hypoactive bowel sounds, psoas sign, obturator sign, Gilliam's sign, Rovsing's sign or tenderness at McBurney's Point Extremities Exam Extremities exam: Present normal inspection and full ROM Back Exam Back exam: Present normal inspection and full ROM Neurological Exam Neurological exam: Present alert, oriented X3, CN II-XII intact, normal gait and reflexes normal; Absent motor sensory deficit Psychiatric Psychiatric exam: Present normal affect and normal mood Skin Skin exam: Present warm, dry, intact and normal color Course Quality Measures none (Patient is) Orders Category Date Time Status US OB <= 14 weeks fetus Stat Exams 01/21/25 12:47 Completed ABO/RH Type Stat Lab 01/21/25 13:00 Completed Beta HCG,Quantitative Stat Lab 01/21/25 13:00 Completed CBC Stat Lab 01/21/25 13:00 Completed CMP [Comprehensive Metabolic Panel] Stat Lab 01/21/25 13:00 Completed Urinalysis Stat Lab 01/21/25 13:37 Completed Vital Signs Vital signs: Vital Signs Temperature 98.5 F 01/21/25 12:43 Pulse Rate 73 01/21/25 12:43 Respiratory Rate 16 01/21/25 12:43 Blood Pressure 116/81 01/21/25 12:43 Pulse Oximetry (%) 99 01/21/25 12:43 Oxygen Delivery Method Room Air 01/21/25 12:43 Patient is afebrile not tachycardic not tachypneic BP stable not hypoxic oxygen saturation is in 99% in room air Vaginal Bleeding MDM Narrative MDM Narrative: This is a case of 19-year-old female who came into the emergency room due to vaginal bleeding and pelvic cramping for 5 days patient is 10 weeks LMP November 11, 2024 seen by the SCREENING NURSE in for check 1 para 0 persistence of the symptoms thus patient decided to sought consult here in the emergency room patient is awake alert oriented not in distress nontoxic looking well-hydrated well-nourished abdominal exam is benign nonsurgical no guarding no rebound no rigidity negative psoas negative straight or negative Rovsing's no McBurney's negative Gilliam sign negative CVA tenderness gravid uterus noted blood test showed no leukocytosis no anemia kidney and liver function is normal no electrolyte imbalance patient urinalysis is normal no urinary tract infection patient is O+ [place] [id number] pelvic ultrasound showed 10 weeks at this point I discussed the patient the result of the blood test and ultrasound she was advised to see an OB branch general manager as soon as possible she told me that she will see the OB branch general manager today for checkup she was told to continue checkup and keep hydrated pelvic rest and no sex until cleared by primary care physician worsening symptoms or any emergent concern return precaution is advised she was out of advised to return in ER or go to OB branch general manager for repeat beta-hCG and pelvic ultrasound patient understood very well the discharge instruction the importance to see an OB branch general manager with this also discussed patient understood very well the discharge instruction Patient was discharged with comfortable condition walking with stable gait. Patient verbalized no further complains explained diagnosis and answered patient question. Patient is comfortable with the proposed management plan including the need to follow up with his/her primary care physician and any specialist if applicable Discussed patient for any urgent condition or worsening sx, He/She needed to go to emergency room immediately or call 911. Patient acknowledge the responsibility to follow up as instructed and to monitor her/his symptoms. For any persistence of the symptoms for more than 3-5 days return precaution advised. Discussed the result of the test and was given printed discharge instruction Patient data External records reviewed:: [facility] previous records Clinical information provided by:: patient Social determinants that could affect healthcare access:: none Patient has the following chronic illnesses:: None How is presenting disease/condition affected by chronic disease/condition?: no chronic disease Evaluation data The following diagnostics were reviewed and interpreted by me:: lab results and radiology exam(s) Lab and/or radiology exams considered but not ordered:: Reviewed Interpretation Summary: Reviewed Medications / Prescriptions Medications or Prescriptions considered but not ordered:: Given Medication administrations:: Given Consultations Consultation(s) initiated? (list below): No Diagnosis Vaginal Bleeding Differential Diagnosis: missed , threatened and vaginal bleeding Most likely diagnosis given after review of the tests above:: Threatened in early Admission Indicated Admission indicated?: not indicated Explain why admission is indicated or not indicated:: Not indicated Admission Request Was there a request for admission?: No Admission Attestation Admission request attestation: Not indicated Disposition Plan Disposition Plan: Discharge Discharge Attestation Discharge Attestation: The patient and all family members were given an opportunity to ask questions and understood the discharge instructions. Discharge instructions specifically effects, indications for sooner follow up or return to the emergency department, and the expected course of current diagnosis. Patient condition: Stable Discharge Plan Plan Patient Disposition: HOME (Self Care) Patient condition on transfer: Stable Prescriptions/Referrals Prescriptions/Med Rec: No Action hydrocodone-acetaminophen 5-300 mg tablet 1 tab PO QID MDD 15 mg PRN (Reason: pain) Qty: 14 0RF ibuprofen 600 mg tablet 600 mg PO QID PRN (Reason: pain) Qty: 30 0RF hydrocodone-acetaminophen 5-325 mg tablet 1 tab PO BID MDD 2 PRN (Reason: pain) Qty: 7 0RF psyllium husk 3.4 gram/5.4 gram powder 1 tbsp PO QDAY Qty: 283 0RF Rx Instructions: mix into at least 8 oz of water or juice before administering acetaminophen-codeine 300-15 mg tablet 1 tab PO Q6H MDD 4 PRN (Reason: pain) Qty: 10 0RF cefuroxime axetil 500 mg tablet 500 mg PO BID Qty: 14 0RF Referrals: Valdemar Curry MD [Primary Care Provider] - In 1 week Jensen Holloway MD [Physician] - 01/22/25 (For further evaluation and treatment threatened with subchorionic hemorrhage and for checkup) Problem List Clinical Impression: Threatened Patient/Caregiver Discharge Instructions Education Materials: ED Possible Miscarriage ... Additional Instructions: Follow-up with your primary care physician in 2 days for reevaluation and to be referred to OB branch general manager for checkup and for further evaluation and treatment of threatened in early worsening symptoms or any emergent concern return to the emergency room immediately or call 911 it is important to see a SCREENING NURSE in 2 days if not go to ER for further evaluation and treatment and to repeat beta-hCG and pelvic ultrasound take multivitamins daily keep hydrated pelvic ultrasound no sex until cleared by your primary care physician Print Language: Monegasque Stand Alone Forms: Estella Award Info., Patient Portal Info Letter PA/CASTING HOUSE WORKER Supervising Physician ANGELINA/FRIEDA Supervising Physician: dr drake
[2025-01-21 13:13] LABS: Basophils # (Auto) 0.0 Thou/mm3 (0.0-0.2); Basophils % (Auto) 0 % (0-2.5); Eosinophils # (Auto) 0.1 Thou/mm3 (0.0-0.5); Eosinophils % (Auto) 1 % (0-10); Hematocrit 39.4 % (36.0-46.0); Hemoglobin 13.7 g/dL (12.0-16.0); Immature Granulocytes Auto 0.02 Thou/mm3 (0.00-0.00); Lymphocytes # (Auto) 2.9 Thou/mm3 (1.0-4.8); Lymphocytes % (Auto) 29 % (10-50); Mean Corpuscular HGB Conc 34.8 g/dl (31.0-37.0); Mean Corpuscular Hemoglobin 28.0 pg (25.0-35.0); Mean Corpuscular Volume 81 fL (80-100); Monocytes # (Auto) 0.7 Thou/mm3 (0.0-0.8); Monocytes % (Auto) 7 % (0-12); Neutrophils # (Auto) 6.3 Thou/mm3 (1.8-7.7); Neutrophils % (Auto) 63 % (37-80); Nucleated Red Blood Cell # 0.00 Thou/mm3 (0.00-0.00); Nucleated Red Blood Cell % 0 /100 WBC (0); Platelet Count 280 Thou/mm3 (140-440); RDW Standard Deviation 37.1 fL (36.4-46.3); Red Blood Count 4.89 Miln/mm3 (4.00-5.20); White Blood Count 10.0 Thou/mm3 (3.6-11.0)
[2025-01-21 13:44] LABS: Alanine Aminotransferase 25 U/L (10-49); Albumin, Serum 4.3 gm/dL (3.5-5.0); Albumin/Globulin Ratio 1.6 (1.2-2.2); Alkaline Phosphatase 88 U/L (46-116); Anion Gap 11 (7-16); Aspartate Amino Transferase 21 U/L (0-34); BUN/Creatinine Ratio 8 Ratio (12-20); Bilirubin,Total 0.4 mg/dL (0.3-1.2); Blood Urea Nitrogen 5 mg/dL (9-23); Calcium 9.9 mg/dL (8.3-10.6); Calcium (Corrected) 9.9 mg/dL (8.5-10.1); Carbon Dioxide 23.0 mMol/L (20.0-31.0); Chloride 106 mMol/L (98-107); Creatinine (Component) 0.6 mg/dL (0.6-1.3); Estimated Creatinine Clearance 121.3 mL/min (>60); Globulin 2.7 gm/dL (2.3-3.5); Glucose 91 mg/dL (74-106); Osmolality,Calculated 276 (275-295); Potassium 3.7 mMol/L (3.4-5.1); Sodium 140 mMol/L (136-145); Total Protein 7.0 gm/dL (5.7-8.2); eGFR > 60 See Note
[2025-01-21 13:49] LABS: Collection Type, Urine Voided
[2025-01-21 14:15] LABS: Beta HCG,Quantitative 85375 mIU/mL (<5.0)
[2025-01-21 14:48] LABS: Bacteria,Urine Rare; Bilirubin,Urine Negative (Negative); Blood,Urine 2+ (Negative); Clarity,Urine Clear (Clear/Hazy); Color,Urine Lt-Yellow (Lt Yel-Yel); Glucose, Urine Negative (Negative); Ketones,Urine Negative (Negative); Leukocyte Esterase,Urine Negative (Negative); Nitrite,Urine Negative (Negative); PH,Urine 6.0 (5.0-7.0); Protein,Urine Negative (Neg - Trace); RBC,Urine 80 /hpf (0-3); Specific Gravity,Urine 1.015 (1.001-1.035); Squamous Epithelial Cell,Urine 1 /hpf (0-5); Urobilinogen,Urine Negative mg/dL (0.0-1.0); WBC,Urine 1 /hpf (0-5)
== END 2025-01-21 15:56 | disposition home or self-care (01) ==
PROVIDERS: Nurse Practitioner Family; Emergency Provider Emergency Medicine; PCP Obstetrics & Gynecology
DX: O20.0 Threatened abortion (principal); Z3A.10 10 weeks gestation of pregnancy
CPT/HCPCS: 36415; 76801; 80053; 81001; 84702; 85025; 86900; 86901; 99284

== ENCOUNTER 2025-02-07 21:07 | Emergency (ER) | payer MEDICAID, SELFPAY ==
[2025-02-07 21:09] VITALS: BMI 25.0
[2025-02-07 21:22] VITALS: BP 119/75; PULSE 89; RESP 16; TEMP 36.9; O2SAT 98
[2025-02-07] MEDS: DEXAMETHASONE SOD PHOS INJ 10 MG/ML VIAL IM (21:41)
[2025-02-07] MEDS: DiphenhydrAMINE ELIX 25 MG/10 ML UDC PO (21:42)
--- NOTE | 2025-02-08 00:52 | EDNOTE_ITS ---
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 patient was seen by the PCP and was prescribed with triamcinolone cream due to severe itching thus patient decided to sought consult here in the emergency room denies any vaginal bleeding vaginal spotting vaginal discharge no OB symptoms Limitations: no limitations Related Data Previous Rx's ?Medication ?Instructions ?Recorded hydrocodone 5 mg-acetaminophen 300 1 tab PO QID PRN pa in #14 tabs 07/14/18 mg tablet ibuprofen 600 mg tablet 600 mg PO QID PRN pain #30 t abs 07/14/18 psyllium husk 3.4 gram/5.4 gram 1 tbsp PO QDAY #283 gr ams 03/24/22 oral powder acetaminophen 300 mg-codeine 15 mg 1 tab PO Q6H PRN pa in #10 tabs 04/17/23 tablet hydrocodone 5 mg-acetaminophen 325 1 tab PO BID PRN pa in #7 tabs 08/23/24 mg tablet cefuroxime axetil 500 mg tablet 500 mg PO BID #14 tabs 09/18/24 Allergies Allergy/AdvReac Type Severity Reaction Status Date / Time No Known Allergies Allergy Verified 02/07/25 21:09 Review of Systems Review of Systems Systems Reviewed: All systems reviewed, normal except as documented Constitutional Constitutional: Reports system reviewed and no additional complaints, except as documented and Reports as per HPI Cardiovascular Cardiovascular: Reports system reviewed and no additional complaints, except as documented and Reports as per HPI Respiratory Respiratory: Reports system reviewed and no additional complaints, except as documented and Reports as per HPI Gastrointestinal Gastrointestinal: Reports system reviewed and no additional complaints, except as documented and Reports as per HPI Genitourinary Genitourinary: Reports system reviewed and no additional complaints, except as documented and Reports as per HPI Musculoskeletal Musculoskeletal: Reports system reviewed and no additional complaints, except as documented and Reports as per HPI Integumentary/Breasts Skin/Breast: Reports other (Rash) Neurologic Neurologic: Reports system reviewed and no additional complaints, except as documented and Reports as per HPI Past Medical History Past Medical History CARDIAC: Negative Cardiac Disorders or Congestive Heart Failure RESPIRATORY: Negative Chronic Obstructive Pulmonary Disease (COPD) or Asthma GENITOURINARY: Negative Renal Disease ENDOCRINE: Negative Diabetes Mellitus Type 1 or Diabetes Mellitus Type 2 HEMATOLOGIC: Negative Sickle Cell Disease Social History SMOKING STATUS: Never smoker ED Exam General Limitations: Present no limitations General appearance: Present alert, in no apparent distress and other (Patient is awake alert oriented not in distress nontoxic looking well-hydrated well- nourished) Head Head exam: Present atraumatic Eye Eye exam: Present normal appearance, PERRL and EOMI ENT ENT exam: Present normal exam, normal oropharynx, mucous membranes moist and other (Drooling of saliva but no facial or throat swelling) Neck Neck exam: Present normal inspection, full ROM and trachea midline Chest Chest inspection: Present normal inspection and symmetric chest wall rise; Absent tenderness Respiratory Respiratory exam: Present normal lung sounds bilaterally; Absent respiratory distress, wheezes, stridor, accessory muscle use or prolonged expiratory phase Cardiovascular Cardiovascular exam: Present regular rate, normal rhythm and normal heart sounds; Absent bradycardia, tachycardia, irregular rhythm, systolic murmur or diastolic murmur Abdominal Exam Abdominal exam: Present soft, normal bowel sounds and other (Gravid uterus); Absent distention, tenderness, guarding, rebound, rigidity, diminished bowel sounds or hyperactive bowel sounds Extremities Exam Extremities exam: Present normal inspection and full ROM Back Exam Back exam: Present normal inspection and full ROM Neurological Exam Neurological exam: Present alert, oriented X3, CN II-XII intact, normal gait and reflexes normal; Absent motor sensory deficit Psychiatric Psychiatric exam: Present normal affect and normal mood Skin Skin exam: Present warm, dry, intact, normal color and other (Noted urticarial rashes on both lower extremities no cellulitis no abscess) Course Quality Measures none Orders Category Date Time Status Dexamethasone Inj [Decadron Inj] Med 02/07/25 21:33 Discontinued 10 mg IM X1 ONE DiphenhydrAMINE [Benadryl] Med 02/07/25 21:33 Discontinued 25 mg PO X1 ONE Vital Signs Vital signs: Vital Signs Temperature 98.5 F 02/07/25 21:22 Pulse Rate 89 02/07/25 21:22 Respiratory Rate 16 02/07/25 21:22 Blood Pressure 119/75 02/07/25 21:22 Pulse Oximetry (%) 98 02/07/25 21:22 Oxygen Delivery Method Room Air 02/07/25 21:22 Patient is afebrile not tachycardic not tachypneic BP stable not hypoxic oxygen saturation is 98% on room air Skin / Abscess / Foreign Body MDM Narrative MDM Narrative:: This is a case of 19-year-old female who came in in the emergency room due to generalized inching and urticarial rashes on both lower extremities secondary to poison oak for 3 days worsening of the symptoms this patient decided to sought consult here in the emergency room patient is 13 weeks 1 para 0 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 patient was seen by the PCP and was prescribed with triamcinolone cream due to severe itching thus patient decided to sought consult here in the emergency room denies any vaginal bleeding vaginal spotting vaginal discharge no OB symptoms physical examination patient is awake alert oriented not in distress nontoxic-appearing no drooling of saliva no fac ial or throat swelling lungs sound is clear no crackles no rales no retraction no stridor soft abdomen gravid uterus nontender patient noted to have maculopapular urticarial rashes on both thigh not infected no cellulitis no abscess based on the physical examination and history patient symptoms suggestive of poison oak dermatitis or allergic reaction I spoke to Dr Fitzgerald OB continuous process coffee roaster on-call and discussed patient condition history and physical examination I was instructed just to give dexamethasone IM dose here and Benadryl patient will take Benadryl at home for itching and continue the tria mcinolone cream patient was given the above medication patient itching was resolved the rash is subsided patient will continue the treatment at home patient was advised to follow-up with the OB for checkup and to follow- up with PCP in 2 days for reevaluation return precaution to the emergency room for any worsening symptoms or emergent concern was also discussed with the patient Patient was discharged with comfortable condition walking with stable gait. Patient verbalized no further complains explained diagnosis and answered patient question. Patient is comfortable with the proposed management plan including the need to follow up with his/her primary care physician and any specialist if applicable Discussed patient for any urgent condition or worsening sx, He/She needed to go to emergency room immediately or call 911. Patient acknowledge the responsibility to follow up as instructed and to monitor her/his symptoms. For any persistence of the symptoms for more than 3-5 days return precaution advised. Discussed the result of the test and was given printed discharge instruction Patient data External records reviewed:: [facility] previous records Clinical information provided by:: patient Social determinants that could affect healthcare access:: none Patient has the following chronic illnesses:: None How is presenting disease/condition affected by chronic disease/condition?: no chronic disease Evaluation data The following diagnostics were reviewed and interpreted by me:: other (specify) Lab and/or radiology exams considered but not ordered:: None Interpretation Summary: None Medications / Prescriptions Medications or Prescriptions considered but not ordered:: Given Medication administrations:: Medication Administration History Discontinued Medications Dexamethasone Sodium Phosphate (Dexamethasone Sod Phos Inj 10 Mg/Ml Vial) 10 mg IM X1 ONE Stop: 02/07/25 21:34 Last Admin: 02/07/25 21:41 Dose: 10 mg Documented By: JIMBO Diphenhydramine HCl (Diphenhydramine Elix 25 Mg/10 Ml Udc) 25 mg PO X1 ONE Stop: 02/07/25 21:34 Last Admin: 02/07/25 21:42 Dose: 25 mg Documented By: BD Given Consultations Consultation(s) initiated? (list below): Yes Consultation #1 (Physician, Specialty, Details): Dr Amilcar BOYER continuous process coffee roaster on-call okay to give dexamethasone and Benadryl one- time dose and discharge patient with Benadryl and continue the triamcinolone cream Diagnosis Skin/Abscess Differential Diagnosis: urticaria, cellulitis, eczema and contact dermatitis Most likely diagnosis given after review of the tests above:: Poison oak dermatitis Admission Indicated Admission indicated?: not indicated Explain why admission is indicated or not indicated:: Not indicated Admission Request Was there a request for admission?: No Admission Attestation Admission request attestation: Not indicated Disposition Plan Disposition Plan: Discharge Discharge Attestation Discharge Attestation: The patient and all family members were given an opportunity to ask questions and understood the discharge instructions. Discharge instructions specifically effects, indications for sooner follow up or return to the emergency department, and the expected course of current diagnosis. Patient condition: Stable Discharge Plan Plan Patient Disposition: HOME (Self Care) Patient condition on transfer: Stable Prescriptions/Referrals Prescriptions/Med Rec: No Action hydrocodone-acetaminophen 5-300 mg tablet 1 tab PO QID MDD 15 mg PRN (Reason: pain) Qty: 14 0RF ibuprofen 600 mg tablet 600 mg PO QID PRN (Reason: pain) Qty: 30 0RF hydrocodone-acetaminophen 5-325 mg tablet 1 tab PO BID MDD 2 PRN (Reason: pain) Qty: 7 0RF psyllium husk 3.4 gram/5.4 gram powder 1 tbsp PO QDAY Qty: 283 0RF Rx Instructions: mix into at least 8 oz of water or juice before administering acetaminophen-codeine 300-15 mg tablet 1 tab PO Q6H MDD 4 PRN (Reason: pain) Qty: 10 0RF cefuroxime axetil 500 mg tablet 500 mg PO BID Qty: 14 0RF Referrals: Stevie Ware MD [Primary Care Provider] - In 1 week Problem List Clinical Impression: Allergic dermatitis due to poison oak, Patient/Caregiver Discharge Instructions Education Materials: First Trimester, Poison Hetal [facility] [facility], ED General Allergic Reactions Additional Instructions: Follow-up with your primary care physician in 2 days for reevaluation worsening symptoms persistent signs or symptoms or recurrence of symptoms return to the emergency room immediately or call 911 you can take Benadryl as needed for itching continued steroid topical that was prescribed by the previous provider you can take Benadryl topical also as needed for itching follow-up with your OB continuous process coffee roaster for your checkup and for any symptoms such as vaginal bleeding vaginal spotting vaginal discharge fever chills return to the emergency room immediately or call 911 continue your multivitamins Print Language: French Stand Alone Forms: Estella Award Info., Patient Portal Info Letter PA/FRIEDA Supervising Physician ANGELINA/FRIEDA Supervising Physician: Dr aquino
== END 2025-02-07 22:04 | disposition home or self-care (01) ==
PROVIDERS: Emergency Provider Emergency Medicine; PCP Family Medicine
DX: O99.711 Diseases of the skin and subcutaneous tissue complicating pregnancy, first trimester (principal); L23.7 Allergic contact dermatitis due to plants, except food; Z3A.13 13 weeks gestation of pregnancy
CPT/HCPCS: 96372; 99282; J1100; A9270

== ENCOUNTER 2025-04-18 10:50 | Observation (INO) | payer MEDICAID, SELFPAY ==
[2025-04-18 10:54] VITALS: BP 108/74; PULSE 97; RESP 16; TEMP 36.9; O2SAT 98
[2025-04-18 11:10] VITALS: PULSE 102; RESP 17; O2SAT 99; BMI 25.4
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
[2025-04-18 12:46] LABS: Collection Type, Urine Clean Catch
[2025-04-18 13:09] LABS: Bacteria,Urine Rare; Bilirubin,Urine Negative (Negative); Blood,Urine 1+ (Negative); Color,Urine Lt-Yellow (Lt Yel-Yel); Culture Indicated,Urine Not Indicated; Glucose, Urine Negative (Negative); Ketones,Urine Negative (Negative); Leukocyte Esterase,Urine Positive (Negative); Nitrite,Urine Negative (Negative); PH,Urine 7.0 (5.0-7.0); Protein,Urine Negative (Neg - Trace); RBC,Urine 26 /hpf (0-3); Specific Gravity,Urine 1.011 (1.001-1.035); Squamous Epithelial Cell,Urine 2 /hpf (0-5); Urobilinogen,Urine Negative mg/dL (0.0-1.0); WBC,Urine 1 /hpf (0-5)
[2025-04-18 13:14] LABS: Clarity,Urine Hazy (Clear/Hazy)
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
[2025-04-18 14:25] VITALS: BP 112/69; PULSE 81; RESP 17; RESP 99; TEMP 36.6; BMI 26.2
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
== END 2025-04-18 16:36 | disposition home or self-care (01) ==
LOC: SERX 13:51 → S4SX 14:38 → SERX 14:53 → S4SX 14:54
PROVIDERS: Nurse Practitioner Family; Admitting Provider Obstetrics & Gynecology; Emergency Provider Emergency Medicine; PCP Family Medicine; Visit Provider Obstetrics & Gynecology
DX: Z04.1 Encounter for examination and observation following transport accident (principal); O32.1XX0 Maternal care for breech presentation, not applicable or unspecified; Z3A.22 22 weeks gestation of pregnancy
CPT/HCPCS: 36415; 59899; 76805; 81001; 86850; 86900; 86901

== ENCOUNTER 2025-05-13 08:11 | Outpatient (AMB) | payer MEDICAID, SELFPAY ==
[2025-05-13 08:28] VITALS: BP 102/68; PULSE 88; RESP 18; TEMP 36.9; O2SAT 98; BMI 27.5
--- NOTE | 2025-05-13 08:28 | AMB.OBINITIA ---
Vital Signs 05/13/25 08:28 Height 1.52 m Height Method Stated Weight 63.957 kg Weight Measurement Method Standing Scale BMI 27.5 BP 102/68 Blood Pressure Source Automatic Cuff Blood Pressure Location Right Upper Arm Position Sitting Respiration 18 Pulse 88 Pulse Source Monitor Temp 98.4 F Temp Source Temporal Artery Scan Pulse Oximetry (%) 98 Oxygen Delivery Method Room Air Allergies/Home Meds Allergies & Medications Allergies No Known Allergies Allergy (Verified 05/13/25 08:30) Intake Visit Data Collection New Patient or Established: Established Patient (seen at [facility] within 3 years) Reason for Visit:: OB TRANSFER Seen by Clinical Staff ONLY (RN/MA): No Solar Systems Designer Required: No Do You Feel Safe at Home: Yes Authorities Contacted: N/A PCP or OBGYN visit in last 3 months: No Hx Now: Yes Are you currently on any form of Control: No Last menstrual period: 11/10/24 Pain Present Currently: No Pain Scale Used: Buenrostro-Fisher/Numerical Pain scale:: 0 Smoking Status Smoking Status: Never smoker Immunizations Flu Vaccine in the Last 12 Months: No Flu Vaccine Exclusion Criteria: No Exclusion Criteria Questionnaires Covid-19 Vaccine Questionnaire Has patient been vacinated for Covid-19 Have you been vacinated for Covid-19: No PHQ-9 PHQ-2 Over the last 2 weeks, how often have you been bothered by any of the following problems? 1. Little interest or pleasure in doing things: not at all 2. Feeling down, depressed, or hopeless: not at all Total score: 0 PHQ-9 3. Trouble falling or staying asleep, or sleeping too much: Not at all 4. Feeling tired or having little energy: Not at all 5. Poor appetite or overeating: Not at all 6. Feeling bad about yourself - or that you are a failure or have let yourself or your family down: Not at all 7. Trouble concentrating on things, such as reading the newspaper or watching television: Not at all 8. Moving or speaking so slowly that other people could have noticed? - Or the opposite - being so fidgety or restless that you have been moving around a lot more than usual: not at all 9. Thoughts that you would be better off or of hurting yourself in some way: Not at all Total score: 0 If you checked off any problems, how difficult have these problems made it for you to do your work, take care of things at home, or get along with other people?: not difficult at all Source: Developed by Drs. Malvin Hein, Geni Manriquez, Betito Doran and colleagues, with an educational adalgisa from [employer]. Depression screen completed yes Social History Living Situation History Marital Status: Single Lives With: Significant Other Housing: House Tobacco History Smoking Status: Never smoker Second Hand Smoke Exposure: No Alcohol History Alcohol Intake: Never Domestic Abuse History Do You Feel Safe at Home: Yes History of Present Illness HPI Narrative 19-year-old 1 para 1 for OBI. Patient is a transfer from [facility]. Her last period November 10, 2024. She reports menses are every month. She was sure about her dates. Denies social habits. Denies surgery. Denies chronic illness. Patient has had no problems with . 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 Denies leaking, bleeding, contractions she came with records. She had a normal 1 hour GTT her urine culture was clean. And patient had a abnormal Pap it was low-grade and HPV was not read and GC and Chlamydia were negative. Hemoglobin was 14, hematocrit 45. Platelets were 311. Patient is O+, antibody screen negative, her RPR is nonreactive, rubella is nonimmune. Her HIV was negative. Hepatitis B-. Hep C negative. Patient did NIPT and carrier screening that was negative as well patient was seen on a nonscheduled appointment at her [facility] clinic with Dr. Curry for possibly passing a kidney stone. She is waiting for those results. [employer] P[employer]: Past Medical History Past Medical History: No Hx Cardiac Disorders, No Hx Renal Disease, No Hx Diabetes Mellitus Type 1 and No Hx Diabetes Mellitus Type 2 OB Initial Visit OB Flowsheet OB Flowsheet Initial Weight: Not Recorded Date <del>?</del> EGA Weight BP Alb Glu CTX Pres Fundal ht FHR Mov Dilation Station Effacement Hx Notes Visit Note 05/13/25 <del>?</del> 26w 2d 63.957 kg 102/68 absent unknown 26 135 active 19-year-old 1 para 0 for OB I. Patient is a transfer from [facility] [place]. She has not had problems with . Her last. November 10, 2024. That puts her due August 16, 2025. Schedule growth sono at [facility]. Discussed labor precautions. Continue prenatals. Return in 4 week for OB check patient needs rePap in a year for low YAN. Menstrual History Menstrual reliability: approximate (month known) Flow: normal Menstrual regularity: regular Monthly: Yes Age at menarche: 11 On control pills at conception: Yes (DEPO) OB History : 1 # of Living Children: 0 Infection History & Risk Evaluation History of STDs: none Patient or partner has history of Genital Herpes: No Genetic Screening & History Genetic Screening/Teratology Counseling - Includes patient, baby's father, or anyone in either family with: 1. Patient's age 35 years or older as of estimated date of delivery: No 2. Thalassemia (Somali, Korean, Mediterranean, or Background); MCV less than 80: No 3. Neural Tube Defect (Meningomyelocele, Spina Bifida, or Anencephaly): No 4. Congenital Heart Defect: No 5. Down Syndrome: No 6. Checo-Sachs (Ashkenazi Roman Catholic, Cajun, Danish Blaine): No 7. Pastora Disease (Ashkenazi Roman Catholic): No 8. Familial Dysautonomia (Ashkenazi Roman Catholic): No 9. Sickle Cell Disease or Trait (): No 10. Hemophilia or other blood disorders: No 11. Muscular Dystrophy: No 12. Cystic Fibrosis: No 13. Jacky's Chorea: No 14. Mental Retardation/Autism: No 15. Other inherited genetic or chromosomal disorder: No 16. Maternal Metabolic Disorder (EG,TYPE 1 Diabetes, PKU): No 17. Patient or baby's father had a child with defects not listed above: No 18. Recurrent loss or a stillbirth: No 19. Medications (including supplements, vitamins, herbs or otc drugs)/illicit/recreational drugs/alcohol since last menstrual period: No 20. Any other: No Infection History 1. Live with someone with TB or exposed to TB: No Other (see comments) Source: [employer] Review of Systems Review of Systems Systems Reviewed: All systems reviewed, normal except as documented Exam General Limitations: no limitations General Appearance: alert, in no apparent distress, comfortable, cooperative, healthy appearing, well developed and well groomed Head Head exam: atraumatic, normocephalic and normal inspection ENT ENT exam: Present normal exam, normal oropharynx and mucous membranes moist Chest Chest inspection: Present normal inspection and symmetric chest wall rise Resp Respiratory exam: Present normal lung sounds bilaterally Card Cardiovascular exam: Present regular rate, normal rhythm and normal heart sounds Abdominal Abdominal exam: Present soft and normal bowel sounds Psych Psychiatric exam: Present normal affect and normal mood Office Procedures OBC Clinic LOC & Office Proc's Nursing/Assessment Patient Status: Established Patient OB Clinic Nursing Assessment: Medication Reconciliation, Update PMH in EMR and Vital Signs OB Clinic Coordination of Care: Complex Care and Chronic Disease 1-5, Education Complex Pt/Fam, Consent,records obtained, informed consent, Lab and Imaging orders, Results/Orders obtained and Staff clarify orders Special Needs: Heart tones Established Patient Charge Established Patient Point Assignment: 140 Established Patient Point Charge: EP Level 4 (120-155) Assessment & Plan Diagnosis / Problem List (1) Encounter for supervision of high risk in second trimester, antepartum: Status: Acute Plan Schedule for growth sono at [facility]. Reviewed labs and dates. Discussed labor precautions. Return in 4 weeks OB Additional Plan Follow Up: 4 Weeks (obc)
== END 2025-05-13 09:26 | disposition home or self-care (01) ==
LOC: HODSOBC 08:11
PROVIDERS: Supervising Provider Advanced Practice Midwife; Visit Provider Advanced Practice Midwife
DX: O09.92 Supervision of high risk pregnancy, unspecified, second trimester (principal); Z3A.26 26 weeks gestation of pregnancy
CPT/HCPCS: 99214; G0463

== ENCOUNTER 2025-06-03 11:23 | Outpatient (AMB) | payer MEDICAID, SELFPAY ==
[2025-06-03 11:38] VITALS: BP 104/68; PULSE 88; RESP 18; TEMP 36.5; O2SAT 96; BMI 27.9
--- NOTE | 2025-06-03 11:38 | OBCLNT_ITS ---
Vital Signs 06/03/25 11:38 Height 1.52 m Height Method Stated Weight 64.524 kg Weight Measurement Method Standing Scale BMI 27.9 BP 104/68 Blood Pressure Source Automatic Cuff Blood Pressure Location Right Upper Arm Position Sitting Respiration 18 Pulse 88 Pulse Source Monitor Temp 97.7 F Temp Source Temporal Artery Scan Pulse Oximetry (%) 96 Oxygen Delivery Method Room Air Allergies/Home Meds Allergies & Medications Allergies No Known Allergies Allergy (Verified 06/03/25 11:39) Medication Reconciliation No Known Home Medications 06/03/25 [History Confirmed 06/03/25] Immunizations Immunizations Flu Vaccine in the Last 12 Months: No Flu Vaccine Exclusion Criteria: No Exclusion Criteria Care OB Visit Log OB Flowsheet Initial Weight: Not Recorded Date -?-?-?-?-?-?-?-?-?-?-?-?- EGA Weight BP Alb Glu CTX Pres Fundal ht FHR Mov Dilation Station Effacement Hx Notes Visit Note 05/13/25 -?-?-?-?-?-?-?-?-?-?-?-?- 26w 2d 63.957 kg 102/68 absent unknown 26 135 active 19-year-old 1 para 0 for OB I. Patient is a transfer from [facility]. She has no t had problems with . Her last. November 10, 2024. That puts her due August 16, 2025. Schedule growt h sono at [facility]. Discussed labor precautions. Continue prenatals. Return in 4 week for OB check patient needs rePap in a year for low YAN. 06/03/25 -?-?-?-?-?-?-?-?-?-?-?-?- 29w 2d 64.524 kg 104/68 absent unknown 28 135 active Denies any kidney pain for the last 2 weeks. Patient is concerned because she had a history of passing kidney stones and her previous OB had told her that she should mention it. Patient also had a concern that had identified a small subchorionic bleed on her first ultrasound but not noticed now. Denies bleeding, leaking, cramps. Reports movement Reviewed her third trimester ultrasound at [facility]. Discussed labor precautions. Tdap today. Discussed comfort measures for kidney stones. Return in 3 weeks OB check JOSE Calculator Estimated Delivery Date Method Current WG Current Estimate 08/17/25 LMP (Certain) 29w 2d Other Estimates 08/11/25 Ultrasound #1 30w 1d 08/11/25 Ultrasound #2 30w 1d 08/17/25 Manual 29w 2d final jose: EFW 42.5% Notes Visit Date: 05/13/25 Last Updated by: Denise James CNM 05/08: 1 hr gtt-, pap:lgsil. NEEDS REPAP 1 YEAR. o+,ABS-,RPR;;NR, RUB ni, HBSAG-,hiv-,hc-,gc/ct-. nipt/CARRIER SCREEN- Office Procedures OBC Clinic LOC & Office Proc's Nursing/Assessment Patient Status: Established Patient OB Clinic Nursing Assessment: Medication Reconciliation, Update PMH in EMR and Vital Signs OB Clinic Coordination of Care: Complex Care and Chronic Disease 1-5, Education Complex Pt/Fam, Consent,records obtained, informed consent, Lab and Imaging orders, Results/Orders obtained and Staff clarify orders Special Needs: Heart tones Established Patient Charge Established Patient Point Assignment: 140 Established Patient Point Charge: EP Level 4 (120-155) Immunizations diphth,pertus(acell),tetanus 2.5 Lf unit-8 mcg-5 Lf/0.5mL IM syringe Performing Provider: Denise James CNM Performing Location: [facility] Administered by: Ayana Gorman MA on 06/03/25 12:06 Dose Route Admin Location Dispensed Lot Number Expiration Date Pack age [facility] Manager 0.5 mL IM Left Deltoid 0.5 mL [id number] 10/10/27 11105-149-99 [id number] Buddy VIS Given Date VIS Provided VIS Publication Date 06/03/25 Single Vaccine 24 Eligibility Eligibility Date Funding Source Public Non-[facility] Assessment & Plan Diagnosis / Problem List (1) Encounter for supervision of high risk in third trimester, antepartum: Status: Acute Plan Increase fluids. Discussed comfort measures for kidney stones. Discussed labor precautions. We reviewed ultrasound. Return in 3 weeks visit Additional Plan Follow Up: 3 Weeks (obc)
== END 2025-06-03 12:03 | disposition home or self-care (01) ==
LOC: HODSOBC 11:23
PROVIDERS: Supervising Provider Advanced Practice Midwife; Visit Provider Advanced Practice Midwife
DX: O09.93 Supervision of high risk pregnancy, unspecified, third trimester (principal); Z3A.29 29 weeks gestation of pregnancy; Z87.442 Personal history of urinary calculi; Z23 Encounter for immunization
CPT/HCPCS: 90471; 90715; 99214; G0463

== ENCOUNTER 2025-06-15 09:18 | Outpatient (AMB) | payer MEDICAID, SELFPAY ==
--- NOTE | 2025-06-15 09:28 | AMB.OBPNC ---
Vital Signs 06/15/25 09:32 Height 1.52 m Height Method Stated Weight 65.317 kg Weight Measurement Method Standing Scale BMI 28.3 BP 98/65 Blood Pressure Source Automatic Cuff Blood Pressure Location Left Upper Arm Position Sitting Respiration 16 Pulse 82 Pulse Source Monitor Temp 97.9 F Temp Source Oral Pulse Oximetry (%) 97 Oxygen Delivery Method Room Air Allergies/Home Meds Allergies & Medications Allergies No Known Allergies Allergy (Verified 06/15/25 09:34) Medication Reconciliation No Known Home Medications 06/03/25 [History Confirmed 06/15/25] Immunizations Immunizations Flu Vaccine in the Last 12 Months: No Flu Vaccine Exclusion Criteria: Refused by Patient Care OB Visit Log OB Flowsheet Initial Weight: Not Recorded Date <del>?</del> EGA Weight BP Alb Glu CTX Pres Fundal ht FHR Mov Dilation Station Effacement Hx Notes Visit Note 05/13/25 <del>?</del> 26w 2d 63.957 kg 102/68 absent unknown 26 135 active 19-year-old 1 para 0 for OB I. Patient is a transfer from [facility]. She has not had problems with . Her last. November 10, 2024. That puts her due August 16, 2025. Schedule growth sono at [facility]. Discussed labor precautions. Continue prenatals. Return in 4 week for OB check patient needs rePap in a year for low YAN. 06/03/25 <del>?</del> 29w 2d 64.524 kg 104/68 absent unknown 28 135 active Denies any kidney pain for the last 2 weeks. Patient is concerned because she had a history of passing kidney stones and her previous OB had told her that she should mention it. Patient also had a concern that had identified a small subchorionic bleed on her first ultrasound but not noticed now. Denies bleeding, leaking, cramps. Reports movement Reviewed her third trimester ultrasound at [facility]. Discussed labor precautions. Tdap today. Discussed comfort measures for kidney stones. Return in 3 weeks OB check 06/15/25 <del>?</del> 31w 0d 65.317 kg 98/65 absent cephalic 30 156 active Declined Tdap and flu vaccine. Reports movement. Denies labor complaints. Denies leaking, bleeding, contractions. Discussed labor precautions. I discussed pros and cons of Tdap and flu vaccine patient declined. Return in 2 weeks OB check JOSE Calculator Estimated Delivery Date Method Current WG Current Estimate 08/17/25 LMP (Certain) 31w 0d Other Estimates 08/11/25 Ultrasound #1 31w 6d 08/11/25 Ultrasound #2 31w 6d 08/17/25 Manual 31w 0d final jose: EFW 42.5% Notes Visit Date: 05/13/25 Last Updated by: Denise James CNM 05/08: 1 hr gtt-, pap:lgsil. NEEDS REPAP 1 YEAR. o+,ABS-,RPR;;NR, RUB ni, HBSAG-,hiv-,hc-,gc/ct-. nipt/CARRIER SCREEN- Office Procedures OBC Clinic LOC & Office Proc's Nursing/Assessment Patient Status: Established Patient OB Clinic Nursing Assessment: Medication Reconciliation, Update PMH in EMR and Vital Signs OB Clinic Coordination of Care: Complex Care and Chronic Disease 1-5, Consent,records obtained, informed consent, Education Simp Pt/Fam, 1 Ins Authorization, Lab and Imaging orders, Results/Orders obtained and Staff clarify orders Special Needs: Heart tones Established Patient Charge Established Patient Point Assignment: 150 Established Patient Point Charge: EP Level 4 (120-155) Assessment & Plan Diagnosis / Problem List (1) Encounter for supervision of high risk in third trimester, antepartum: Status: Acute Plan PTL precaution reviewed, declined TDAP and flu. continue PNV. rtc 2 week Additional Plan Follow Up: 2 Weeks (obc)
[2025-06-15 09:32] VITALS: BP 98/65; PULSE 82; RESP 16; TEMP 36.6; O2SAT 97; BMI 28.3
== END 2025-06-15 09:52 | disposition home or self-care (01) ==
LOC: HODSOBC 09:18
PROVIDERS: Supervising Provider Advanced Practice Midwife; Visit Provider Advanced Practice Midwife
DX: O09.93 Supervision of high risk pregnancy, unspecified, third trimester (principal); Z3A.31 31 weeks gestation of pregnancy; Z28.21 Immunization not carried out because of patient refusal
CPT/HCPCS: 99214; G0463

== ENCOUNTER 2025-06-30 14:31 | Outpatient (AMB) | payer MEDICAID, SELFPAY ==
[2025-06-30 14:39] VITALS: BP 106/71; PULSE 83; RESP 16; TEMP 36.4; O2SAT 97; BMI 29.0
--- NOTE | 2025-06-30 14:39 | OBCLNT_ITS ---
Vital Signs 06/30/25 14:39 Height 1.52 m Height Method Stated Weight 67.132 kg Weight Measurement Method Standing Scale BMI 29.0 BP 106/71 Blood Pressure Source Automatic Cuff Blood Pressure Location Left Upper Arm Position Sitting Respiration 16 Pulse 83 Pulse Source Monitor Temp 97.5 F Temp Source Oral Pulse Oximetry (%) 97 Oxygen Delivery Method Room Air Allergies/Home Meds Allergies & Medications Allergies No Known Allergies Allergy (Verified 06/30/25 14:39) Medication Reconciliation vitamins-iron fumarate 66 mg iron-folic acid 1 mg tablet tab PO 06/30/25 [History Confirmed 06/30/25] Immunizations Immunizations Flu Vaccine in the Last 12 Months: No Flu Vaccine Exclusion Criteria: Refused by Patient Care OB Visit Log OB Flowsheet Initial Weight: Not Recorded Date -?-?-?-?-?-?-?-?-?-?-?-?- EGA Weight BP Alb Glu CTX Pres Fundal ht FHR Mov Dilation Station Effacement Hx Notes Visit Note 05/13/25 -?-?-?-?-?-?-?-?-?-?-?-?- 26w 2d 63.957 kg 102/68 absent unknown 26 135 active 19-year-old 1 para 0 for OB I. Patient is a transfer from [facility]. She has not had problems with . Her last. November 10, 2024. That puts her due August 16, 2025. Schedule growt h sono at [facility]. Discussed labor precautions. Continue prenatals. Return in 4 week for OB check patient needs rePap in a year for low YAN. 06/03/25 -?-?-?-?-?-?-?-?-?-?-?-?- 29w 2d 64.524 kg 104/68 absent unknown 28 135 active Denies any kidney pain for the last 2 weeks. Patient is concerned because she had a history of passing kidney stones and her previous OB had told her that she should mention it. Patient also had a concern that had identified a small subchorionic bleed on her first ultrasound but not noticed now. Denies bleeding, leaking, cramps. Reports movement Reviewed her third trimester ultrasound at [facility]. Discussed labor precautions. Tdap today. Discussed comfort measures for kidney stones. Return in 3 weeks OB check 06/15/25 -?-?-?-?-?-?-?-?-?-?-?-?- 31w 0d 65.317 kg 98/65 absent cephalic 30 156 active Declined Tdap and flu vaccine. Reports movement. Denies labor complaints. Denies leaking, bleeding, contractions. Discussed labor precautions. I discussed pros and cons of Tdap and flu vaccine patient declined. Return in 2 weeks OB check 06/30/25 -?-?-?-?-?-?-?-?-?-?-?-?- 33w 1d 67.132 kg 106/71 absent cephalic 33 156 active Reports good movement. Denies leaking, bleeding or contractions. GBS next visit. Discussed labor precautions. Reviewed kick count twice a day. And danger signs. Return in 2 weeks for GBS JOSE Calculator Estimated Delivery Date Method Current WG Current Estimate 08/17/25 LMP (Certain) 33w 1d Other Estimates 08/11/25 Ultrasound #1 34w 0d 08/11/25 Ultrasound #2 34w 0d 08/17/25 Manual 33w 1d final jose: EFW 42.5% Notes Visit Date: 05/13/25 Last Updated by: Denise James CNM 05/08: 1 hr gtt-, pap:lgsil. NEEDS REPAP 1 YEAR. o+,ABS-,RPR;;NR, RUB ni, HBSAG-,hiv-,hc-,gc/ct-. nipt/CARRIER SCREEN- Office Procedures OBC Clinic LOC & Office Proc's Nursing/Assessment Patient Status: Established Patient OB Clinic Nursing Assessment: Medication Reconciliation, Update PMH in EMR and Vital Signs OB Clinic Coordination of Care: Complex Care and Chronic Disease 1-5, Consent,records obtained, informed consent, Education Simp Pt/Fam, 1 Ins Authorization, Lab and Imaging orders, Results/Orders obtained and Staff clarify orders Special Needs: Heart tones Established Patient Charge Established Patient Point Assignment: 150 Established Patient Point Charge: EP Level 4 (120-155) Assessment & Plan Diagnosis / Problem List (1) Encounter for supervision of high risk in third trimester, antepartum: Status: Acute Plan GBS next visit. Discussed labor precautions. Kick count twice a day. Discussed danger signs and symptoms and ER precautions. Return in 2 weeks OB check Additional Plan Follow Up: 2 Weeks (OBC)
== END 2025-06-30 14:49 | disposition home or self-care (01) ==
LOC: HODSOBC 14:31
PROVIDERS: Supervising Provider Advanced Practice Midwife; Visit Provider Advanced Practice Midwife
DX: O09.93 Supervision of high risk pregnancy, unspecified, third trimester (principal); Z3A.33 33 weeks gestation of pregnancy; Z28.21 Immunization not carried out because of patient refusal
CPT/HCPCS: 99214; G0463

== ENCOUNTER 2025-07-10 12:55 | Outpatient (AMB) | payer MEDICAID, SELFPAY ==
[2025-07-10 13:05] VITALS: BP 107/73; PULSE 90; RESP 18; TEMP 36.5; O2SAT 97; BMI 29.2
--- NOTE | 2025-07-10 13:05 | OBCLNT_ITS ---
Vital Signs 07/10/25 13:05 Height 1.52 m Height Method Stated Weight 67.585 kg Weight Measurement Method Standing Scale BMI 29.2 BP 107/73 Blood Pressure Source Automatic Cuff Blood Pressure Location Right Upper Arm Position Sitting Respiration 18 Pulse 90 Pulse Source Monitor Temp 97.7 F Temp Source Temporal Artery Scan Pulse Oximetry (%) 97 Oxygen Delivery Method Room Air Allergies/Home Meds Allergies & Medications Allergies No Known Allergies Allergy (Verified 07/10/25 13:06) Medication Reconciliation vitamins-iron fumarate 66 mg iron-folic acid 1 mg tablet tab PO 06/15 01/07 [History Confirmed 07/10/25] Immunizations Immunizations Flu Vaccine in the Last 12 Months: No Flu Vaccine Exclusion Criteria: No Exclusion Criteria Care OB Visit Log OB Flowsheet Initial Weight: Not Recorded Date -?-?-?-?-?-?-?-?-?-?-?-?- EGA Weight BP Alb Glu CTX Pres Fundal ht FHR Mov Dilation Station Effacement Hx Notes Visit Note 05/13/25 -?-?-?-?-?-?-?-?-?-?-?-?- 26w 2d 63.957 kg 102/68 absent unknown 26 135 active 19-year-old 1 para 0 for OB I. Patient is a transfer from [facility]. She has not had problems with . Her last. November 10, 2024. That puts her due August 16, 2025. Schedule growt h sono at [facility]. Discussed labor precautions. Continue prenatals. Return in 4 week for OB check patient needs rePap in a year for low YAN. 06/03/25 -?-?-?-?-?-?-?-?-?-?-?-?- 29w 2d 64.524 kg 104/68 absent unknown 28 135 active Denies any kidney pain for the last 2 weeks. Patient is concerned because she had a history of passing kidney stones and her previous OB had told her that she should mention it. Patient also had a concern that had identified a small subchorionic bleed on her first ultrasound but not noticed now. Denies bleeding, leaking, cramps. Reports movement Reviewed her third trimester ultrasound at [facility]. Discussed labor precautions. Tdap today. Discussed comfort measures for kidney stones. Return in 3 weeks OB check 06/15/25 -?-?-?-?-?-?-?-?-?-?-?-?- 31w 0d 65.317 kg 98/65 absent cephalic 30 156 active Declined Tdap and flu vaccine. Reports movement. Denies labor complaints. Denies leaking, bleeding, contractions. Discussed labor precautions. I discussed pros and cons of Tdap and flu vaccine patient declined. Return in 2 weeks OB check 06/30/25 -?-?-?-?-?-?-?-?-?-?-?-?- 33w 1d 67.132 kg 106/71 absent cephalic 33 156 active Reports good mo vement. Denies leaking, bleeding or contractions. GBS next visit. Discussed labor precautions. Reviewed kick count twice a day. And danger signs. Return in 2 weeks for GBS 07/10/25 -?-?-?-?-?-?-?-?-?-?-?-?- 34w 4d 67.585 kg 107/73 absent cephalic 33 45 active Reports good movement. Denies leaking. No complaints of contractions or bleeding. Sono for growth at [facility]. Discussed labor precautions. Kick count twice a day. GBS next visit. Return in 2 weeks OB check JOSE Calculator Estimated Delivery Date Method Current WG Current Estimate 08/17/25 LMP (Certain) 34w 4d Other Estimates 08/11/25 Ultrasound #1 35w 3d 08/11/25 Ultrasound #2 35w 3d 08/17/25 Manual 34w 4d final jose: EFW 42.5% Notes Visit Date: 05/13/25 Last Updated by: Denise James CNM 05/08: 1 hr gtt-, pap:lgsil. NEEDS REPAP 1 YEAR. o+,ABS-,RPR;;NR, RUB ni, HBSAG-,hiv-,hc-,gc/ct-. nipt/CARRIER SCREEN- Office Procedures OBC Clinic LOC & Office Proc's Nursing/Assessment Patient Status: Established Patient OB Clinic Nursing Assessment: Medication Reconciliation, Update PMH in EMR and Vital Signs OB Clinic Coordination of Care: Complex Care and Chronic Disease 1-5, Consent,records obtained, informed consent, Education Simp Pt/Fam, Lab and Imaging orders, Results/Orders obtained and Staff clarify orders Special Needs: Heart tones Established Patient Charge Established Patient Point Assignment: 135 Established Patient Point Charge: EP Level 4 (120-155) Assessment & Plan Diagnosis / Problem List (1) Encounter for supervision of high risk in third trimester, antepartum: Status: Acute Plan Sono for growth at [facility]. Discussed labor precautions. Kick count twice a day. Continue prenatals. Discussed danger signs symptoms return in 2 weeks OB check and GBS Additional Plan Follow Up: 2 Weeks (obc)
== END 2025-07-10 13:33 | disposition home or self-care (01) ==
LOC: HODSOBC 12:55
PROVIDERS: Supervising Provider Advanced Practice Midwife; Visit Provider Advanced Practice Midwife
DX: O09.93 Supervision of high risk pregnancy, unspecified, third trimester (principal); Z3A.34 34 weeks gestation of pregnancy
CPT/HCPCS: 99214; G0463

== ENCOUNTER 2025-07-15 13:56 | Outpatient (AMB) | payer MEDICAID, SELFPAY ==
[2025-07-15 14:19] VITALS: BP 110/74; PULSE 93; RESP 18; TEMP 36.8; O2SAT 98; BMI 27.6
--- NOTE | 2025-07-15 14:19 | OBCLNT_ITS ---
Vital Signs 07/15/25 14:19 Height 1.52 m Height Method Stated Weight 63.673 kg Weight Measurement Method Standing Scale BMI 27.6 BP 110/74 Blood Pressure Source Automatic Cuff Blood Pressure Location Left Upper Arm Position Sitting Respiration 18 Pulse 93 Pulse Source Monitor Temp 98.2 F Temp Source Oral Pulse Oximetry (%) 98 Oxygen Delivery Method Room Air Allergies/Home Meds Allergies & Medications Allergies No Known Allergies Allergy (Verified 07/15/25 14:21) Medication Reconciliation vitamins-iron fumarate 66 mg iron-folic acid 1 mg tablet tab PO 06/30/25 [History Confirmed 07/15/25] Immunizations Immunizations Flu Vaccine in the Last 12 Months: No Flu Vaccine Exclusion Criteria: No Exclusion Criteria Care OB Visit Log OB Flowsheet Initial Weight: Not Recorded Date -?-?-?-?-?-?-?-?-?-?-?-?- EGA Weight BP Alb Glu CTX Pres Fundal ht FHR Mov Dilation Station Effacement Hx Notes Visit Note 05/13/25 -?-?-?-?-?-?-?-?-?-?-?-?- 26w 2d 63.957 kg 102/68 absent unknown 26 135 active 19-year-old 1 para 0 for OB I. Patient is a transfer from [facility]. She has not had problems with . Her last. November 10, 2024. That puts her due August 16, 2025. Schedule growt h sono at [facility]. Discussed labor precautions. Continue prenatals. Return in 4 week for OB check patient needs rePap in a year for low YAN. 06/03/25 -?-?-?-?-?-?-?-?-?-?-?-?- 29w 2d 64.524 kg 104/68 absent unknown 28 135 active Denies any kidney pain for the last 2 weeks. Patient is concerned because she had a history of passing kidney stones and her previous OB had told her that she should mention it. Patient also had a concern that had identified a small subchorionic bleed on her first ultrasound but not noticed now. Denies bleeding, leaking, cramps. Reports movement Reviewed her third trimester ultrasound at [facility]. Discussed labor precautions. Tdap today. Discussed comfort measures for kidney stones. Return in 3 weeks OB check 06/15/25 -?-?-?-?-?-?-?-?-?-?-?-?- 31w 0d 65.317 kg 98/65 absent cephalic 30 156 active Declined Tdap and flu vaccine. Reports movement. Denies labor complaints. Denies leaking, bleeding, contractions. Discussed labor precautions. I discussed pros and cons of Tdap and flu vaccine patient declined. Return in 2 weeks OB check 06/30/25 -?-?-?-?-?-?-?-?-?-?-?-?- 33w 1d 67.132 kg 106/71 absent cephalic 33 156 active Reports good movement. Denies leaking, bleeding or contractions. GBS next visit. Discussed labor precautions. Reviewed kick count twice a day. And danger signs. Return in 2 weeks for GBS 07/10/25 -?-?--?-?-?-?-?-?-?-?-?-?- 34w 4d 67.585 kg 107/73 absent cephalic 33 45 active Reports good movement. Denies leaking. No complaints of contractions or bleeding. Sono for growth at [facility]. Discussed labor precautions. Kick count twice a day. GBS next visit. Return in 2 weeks OB check JOSE Calculator Estimated Delivery Date Method Current WG Current Estimate 08/17/25 LMP (Certain) 35w 2d Other Estimates 08/11/25 Ultrasound #1 36w 1d 08/11/25 Ultrasound #2 36w 1d 08/17/25 Manual 35w 2d final jose: EFW 42.5% Notes Visit Date: 05/13/25 Last Updated by: Denise James CNM 05/08: 1 hr gtt-, pap:lgsil. NEEDS REPAP 1 YEAR. o+,ABS-,RPR;;NR, RUB ni, HBSAG-,hiv-,hc-,gc/ct-. nipt/CARRIER SCREEN- Office Procedures [facility] LOC & Office Proc's Nursing/Assessment Patient Status: Established Patient OB Clinic Nursing Assessment: Medication Reconciliation, Update PMH in EMR and Vital Signs OB Clinic Coordination of Care: Complex Care and Chronic Disease 1-5, Consent,records obtained, informed consent, Education Simp Pt/Fam, Lab and Imaging orders, Results/Orders obtained and Staff clarify orders Special Needs: Heart tones Established Patient Charge Established Patient Point Assignment: 135 Established Patient Point Charge: EP Level 4 (120-155) Assessment & Plan Diagnosis / Problem List (1) Encounter for supervision of high risk in third trimester, antepartum: Status: Acute Additional Assessment Discussed labor precautions. Kick count twice a day. GBS today comfort measures for early labor return in 2 weeks OB check Additional Plan Follow Up: 2 Weeks (obc)
== END 2025-07-15 14:33 | disposition home or self-care (01) ==
LOC: HODSOBC 13:56
PROVIDERS: Supervising Provider Advanced Practice Midwife; Visit Provider Advanced Practice Midwife
DX: O09.93 Supervision of high risk pregnancy, unspecified, third trimester (principal); Z3A.35 35 weeks gestation of pregnancy
CPT/HCPCS: 99214; G0463